=== PATIENT | female | born 1960 | race Caucasian/White ===

== ENCOUNTER 2017-02-02 12:17 | Day surgery (SDC) | payer BC ==
[2017-02-02 12:33] VITALS: BP 155/82; PULSE 76; RESP 20; TEMP 97.8
--- NOTE | 2017-02-02 15:39 | US ---
EXAMINATION TYPE: US FNA thyroid DATE OF EXAM: 02/02/2017 1:37 PM COMPARISON: NONE HISTORY: Thyroid nodule. Maximal barrier technique was utilized. After informed consent, skin overlying the lesion was locali zed with ultrasound and the overlying skin prepped and draped. Ultrasound was utilized using sterile technique. Lidocaine was used for local anesthesia. Five passes with a 25-gauge needle were made int o the nodule and aspirated specimen was submitted to cytology. Following the procedure hemostasis ac hieved. No immediate complication. The patient discharged in stable condition. IMPRESSION: STATUS POST ULTRASOUND GUIDED FINE NEEDLE ASPIRATION OF THYROID NODULE, PATHOLOGY IS PEND ING. THIS PROCEDURE WAS PERFORMED BY THE UNDERSIGNED.
== END 2017-02-02 13:40 | disposition home or self-care (01) ==
LOC: RADPROMAIN 12:17
PROVIDERS: ATTEND Family Medicine
DX: E04.1 Nontoxic single thyroid nodule (principal)
CPT/HCPCS: 10022; 76942; 88173; 88305

== ENCOUNTER → 2017-05-28 | Outpatient (CLI) | payer BC ==
--- NOTE | 2017-05-31 10:10 | MM ---
Reason for exam: screening (asymptomatic). Last mammogram was performed 1 year and 2 months ago. History: Patient is postmenopausal and is nulliparous. Family history of breast cancer in paternal cousin and breast cancer in paternal aunt at age 50. Taking estrogen for 10 years 5 months beginning at age 39. Physical Findings: A clinical breast exam by your physician is recommended on an annual basis and results should be correlated with mammographic findings. MG 3D Screening Mammo W/Cad Bilateral CC and MLO view(s) were taken. Prior study comparison: April 07, 2016, bilateral MG 3d screening mammo w/cad. February 28, 2015, bilateral MG screening mammo w CAD. The breast tissue is heterogeneously dense. This may lower the sensitivity of mammography. Benign calcifications. There is no discrete abnormality. No significant changes when compared with prior studies. ASSESSMENT: Benign, BI-RAD 2 RECOMMENDATION: Routine screening mammogram of both breasts in 1 year.
== END | disposition home or self-care (01) ==
LOC: RADMAMWWP 13:47
PROVIDERS: ATTEND Obstetrics & Gynecology
DX: Z12.31 Encounter for screening mammogram for malignant neoplasm of breast (principal)
CPT/HCPCS: 77063; G0202

== ENCOUNTER 2017-12-04 13:53 | Emergency (ER) | payer BC ==
[2017-12-04] MEDS ORDERED: ASPIRIN 81 MG PO STA (14:39)
[2017-12-04] MEDS ORDERED: SODIUM CHLORIDE 0.9% 1,000 ML IV STA (14:39)
[2017-12-04] MEDS ORDERED: LORazepam 1 MG TAB PO STA (14:42)
[2017-12-04 14:52] LABS: Basophils % (A) 0 %; Eosinophils # (A) 0.2 k/uL (0-0.7); Eosinophils % (A) 2 %; HCT 45.7 % (34.0-46.0); HGB 14.8 gm/dL (11.4-16.0); Lymphocytes # (A) 2.5 k/uL (1.0-4.8); Lymphocytes % (A) 26 %; MCH 27.7 pg (25.0-35.0); MCHC 32.3 g/dL (31.0-37.0); MCV 85.6 fL (80.0-100.0); Mean Platelet Volume 7.4; Monocytes # (A) 0.5 k/uL (0-1.0); Monocytes % (A) 5 %; Neutrophils # (A) 6.3 k/uL (1.3-7.7); Neutrophils % (A) 64 %; Platelet Count 272 k/uL (150-450); RBC 5.34 m/uL (3.80-5.40); RDW 13.9 % (11.5-15.5); WBC 9.9 k/uL (3.8-10.6)
[2017-12-04 15:10] LABS: Creatine Kinase 74 U/L (30-135)
[2017-12-04 15:11] LABS: ALT 35 U/L (9-52); AST 29 U/L (14-36); Albumin 4.4 g/dL (3.5-5.0); Alkaline Phosphatase 104 U/L (38-126); Anion Gap 13 mmol/L; Blood Urea Nitrogen 17 mg/dL (7-17); Carbon Dioxide 28 mmol/L (22-30); Chloride 99 mmol/L (98-107); Glucose 77 mg/dL (74-99); Potassium 3.5 mmol/L (3.5-5.1); Sodium 140 mmol/L (137-145); Total Bilirubin 0.4 mg/dL (0.2-1.3); Total Protein 7.6 g/dL (6.3-8.2)
[2017-12-04 15:21] LABS: INR 0.9 (<1.2); Partial Thromboplastin Time 25.3 sec (22.0-30.0); Prothrombin Time 9.4 sec (9.0-12.0)
[2017-12-04 15:23] LABS: Creatine Kinase MB 0.7 ng/mL (0.0-2.4); Troponin I <0.012 ng/mL (0.000-0.034)
--- NOTE | 2017-12-04 15:31 | XR ---
EXAMINATION TYPE: XR chest 2V DATE OF EXAM: 12/04/2017 COMPARISON: None HISTORY: 57-year-old female with dysrhythmia TECHNIQUE: Frontal and lateral views FINDINGS: The cardiomediastinal silhouette, aorta, and pulmonary vasculature are within normal limits. Mild int erstitial prominence is chronic appearance. Otherwise, lungs and pleural spaces are clear. IMPRESSION: No acute cardiopulmonary process.
--- NOTE | 2017-12-04 16:11 | ED ---
Arrhythmia/Palpitations HPI - General Chief Complaint: Arrhythmia/Palpitations Stated Complaint: Palpitations Time Seen by Provider: 12/04/17 14:23 Source: patient Mode of arrival: wheelchair Limitations: no limitations - History of Present Illness Initial Comments: 57 years old female presented with a palpitation she has this ongoing for 3 days this morning she got dizzy as well she said she is very stressed out from some family affairs she is looking after sister she has a psych disorders and parents are not doing very well area stressful situations recently she does drink coffee has no history of alcohol abuse no history of thyroid disease she is nonsmoker her parents is quite healthy heart bruce. She denies any headache no chest pain or shortness of breath no pleuritic chest pain no fever no chills she is not coughing up any phlegm no symptoms of TIA or CVA - Related Data Home Medications Medication Instructions Recorded Confirmed Estrogens, Conjugated Cream 1 dose VAGINAL Q72H 09/01/16 12/04/17 [Premarin Cream] Fluticasone Nasal [place] [Flonase 1 spray NASAL DAILY 09/01/16 12/04/17 Nasal [place]] Montelukast [Singulair] 10 mg PO HS 09/01/16 12/04/17 Multivitamins, Thera [Multivitamin] 1 tab PO DAILY 09/01/16 12/04/17 Testosteron Unknown Dose 1 dose IM Q60D 09/01/16 12/04/17 Triamterene/Hydrochlorothiazid 1 tab PO QAM 09/01/16 12/04/17 [Triamterene-Hctz 37.5-25 mg Cp] amLODIPine BESYLATE [Amlodipine 5 mg PO HS 09/01/16 12/04/17 Besylate] Cholecalciferol [Vitamin D3] 1,000 unit PO DAILY 12/04/17 12/04/17 Previous Rx's Medication Instructions Recorded LORazepam [Ativan] 0.5 mg PO BID #10 tab 12/04/17 Allergies Allergy/AdvReac Type Severity Reaction Status Date / Time Sulfa (Sulfonamide Allergy Rash/Hives Verified 12/04/17 15:45 Antibiotics) lisinopril AdvReac Cough Verified 12/04/17 15:45 Review of Systems ROS Statement: Those systems with pertinent positive or pertinent negative responses have been documented in the HPI. ROS Other: All systems not noted in ROS Statement are negative. Past Medical History Past Medical History: GERD/Reflux, Hypertension History of Any Multi-Drug Resistant Organisms: None Reported Past Surgical History: Appendectomy, Hysterectomy Additional Past Surgical History / Comment(s): RIGHT LEG VEIN STRIPPING ( SWELLING). OOPHERECTOMIES. SINUS. Past Anesthesia/Blood Transfusion Reactions: Motion Sickness Past Psychological History: No Psychological Hx Reported Smoking Status: Former smoker Past Alcohol Use History: Rare Past Drug Use History: None Reported General Exam - General Exam Comments Initial Comments: General: The patient is awake and alert, in no distress, and does not appear acutely ill. Bit anxious Skin: Skin is warm and dry and no rashes or lesions are noted. Eye: Pupils are equal, round and reactive to light, extra-ocular movements are intact; there is normal conjunctiva bilaterally. Ears, nose, mouth and throat: There are moist mucous membranes and no oral lesions. Neck: The neck is supple, there is no tenderness no obvious goiter noticed Cardiovascular: There is a regular rate and rhythm. No murmur, rub or gallop is appreciated. Respiratory: To auscultation bilateral, no wheezing no rhonchi no distress respiratory bruce noticed Gastrointestinal: Soft, non-distended, non-tender abdomen without masses or organomegaly noted. There is no rebound or guarding present. Bowel sounds are unremarkable. Back: There is no tenderness to palpation in the midline. There is no obvious deformity. Musculoskeletal: Normal ROM, no tenderness, There is no pedal edema. There is no calf tenderness or swelling. No cords were appreciated. Neurological: CN II-XII intact, Cranial nerves III through XII are intact. There are no obvious motor or sensory deficits. Coordination appears grossly intact. Speech is normal. Psychiatric: Cooperative, appropriate mood & affect, normal judgment. 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 ] Respiratory 18 Rate Blood Pressure 167/90 O2 Sat by Pulse 97 Oximetry Is reassessed at 1615, CBC, troponin, compressive metabolic panel, TSH and he told chemistries are within normal range so his EKG and the chest x-ray she is she has no chest pain and she is comfortable going home I recommended that she follow up with the cardiology as outpatient or return to the ER if symptoms get worse she agrees with that she be gone home on a small dose of Ativan and aspirin 81 mg EKG Findings - EKG Comments: EKG Findings:: Him EKG is normal sinus rhythm ventricular rate is 82 FL interval is 158 QRS duration is 78 QT/QTc is 376/439 review of this EKG revealed a T-wave inversion in lead 3 no STEMI noticed no ST segment depression noticed Medical Decision Making - Lab Data Result diagrams: 12/04/17 14:28 12/04/17 14:28 Lab Results 12/04/17 12/04/17 12/04/17 Range/Units 14:28 14:28 14:28 WBC 9.9 (3.8-10.6) k/uL RBC 5.34 (3.80-5.40) m/uL Hgb 14.8 (11.4-16.0) gm/dL Hct 45.7 (34.0-46.0) % MCV 85.6 (80.0-100.0) fL MCH 27.7 (25.0-35.0) pg MCHC 32.3 (31.0-37.0) g/dL RDW 13.9 (11.5-15.5) % Plt Count 272 (150-450) k/uL Neutrophils % 64 % Lymphocytes % 26 % Monocytes % 5 % Eosinophils % 2 % Basophils % 0 % Neutrophils # 6.3 (1.3-7.7) k/uL Lymphocytes # 2.5 (1.0-4.8) k/uL Monocytes # 0.5 (0-1.0) k/uL Eosinophils # 0.2 (0-0.7) k/uL Basophils # 0.0 (0-0.2) k/uL PT (9.0-12.0) sec INR (<1.2) APTT (22.0-30.0) sec Sodium 140 (137-145) mmol/L Potassium 3.5 (3.5-5.1) mmol/L Chloride 99 (98-107) mmol/L Carbon Dioxide 28 (22-30) mmol/L Anion Gap 13 mmol/L BUN 17 (7-17) mg/dL Creatinine 0.80 (0.52-1.04) mg/dL Est GFR (MDRD) Af Amer >60 (>60 ml/min/1.73 sqM) Est GFR (MDRD) Non-Af >60 (>60 ml/min/1.73 sqM) Glucose 77 (74-99) mg/dL Calcium 10.0 (8.4-10.2) mg/dL Magnesium 2.0 (1.6-2.3) mg/dL Total Bilirubin 0.4 (0.2-1.3) mg/dL AST 29 (14-36) U/L ALT 35 (9-52) U/L Alkaline Phosphatase 104 (38-126) U/L Total Creatine Kinase 74 (30-135) U/L CK-MB (CK-2) 0.7 (0.0-2.4) ng/mL CK-MB (CK-2) Rel Index 0.9 Troponin I <0.012 (0.000-0.034) ng/mL Total Protein 7.6 (6.3-8.2) g/dL Albumin 4.4 (3.5-5.0) g/dL TSH 2.140 (0.465-4.680) mIU/L 12/04/17 Range/Units 14:28 WBC (3.8-10.6) k/uL RBC (3.80-5.40) m/uL Hgb (11.4-16.0) gm/dL Hct (34.0-46.0) % MCV (80.0-100.0) fL MCH (25.0-35.0) pg MCHC (31.0-37.0) g/dL RDW (11.5-15.5) % Plt Count (150-450) k/uL Neutrophils % % Lymphocytes % % Monocytes % % Eosinophils % % Basophils % % Neutrophils # (1.3-7.7) k/uL Lymphocytes # (1.0-4.8) k/uL Monocytes # (0-1.0) k/uL Eosinophils # (0-0.7) k/uL Basophils # (0-0.2) k/uL PT 9.4 (9.0-12.0) sec INR 0.9 (<1.2) APTT 25.3 (22.0-30.0) sec Sodium (137-145) mmol/L Potassium (3.5-5.1) mmol/L Chloride (98-107) mmol/L Carbon Dioxide (22-30) mmol/L Anion Gap mmol/L BUN (7-17) mg/dL Creatinine (0.52-1.04) mg/dL Est GFR (MDRD) Af Amer (>60 ml/min/1.73 sqM) Est GFR (MDRD) Non-Af (>60 ml/min/1.73 sqM) Glucose (74-99) mg/dL Calcium (8.4-10.2) mg/dL Magnesium (1.6-2.3) mg/dL Total Bilirubin (0.2-1.3) mg/dL AST (14-36) U/L ALT (9-52) U/L Alkaline Phosphatase (38-126) U/L Total Creatine Kinase (30-135) U/L CK-MB (CK-2) (0.0-2.4) ng/mL CK-MB (CK-2) Rel Index Troponin I (0.000-0.034) ng/mL Total Protein (6.3-8.2) g/dL Albumin (3.5-5.0) g/dL TSH (0.465-4.680) mIU/L Disposition Clinical Impression: Palpitation Disposition: HOME SELF-CARE Condition: Good Instructions: Palpitations (ED) Prescriptions: LORazepam [Ativan] 0.5 mg PO BID #10 tab Referrals: Tirso You MD [Primary Care Provider] - 1-2 days Elena Fuentes MD [STAFF PHYSICIAN] - 1-2 days
[2017-12-04 16:25] VITALS: BP 128/62; PULSE 70; RESP 16; TEMP 98.1
== END 2017-12-04 16:25 | disposition home or self-care (01) ==
LOC: EC 13:53
DX: R00.2 Palpitations (principal); R42 Dizziness and giddiness; I10 Essential (primary) hypertension; Z79.51 Long term (current) use of inhaled steroids; Z87.891 Personal history of nicotine dependence; Z88.2 Allergy status to sulfonamides; Z88.8 Allergy status to other drugs, medicaments and biological substances; Z79.899 Other long term (current) drug therapy
CPT/HCPCS: 36415; 71046; 80053; 82550; 82553; 83735; 84443; 84484; 85025; 85610; 85730; 93005; 96360; 99285

== ENCOUNTER → 2018-07-13 | Outpatient (CLI) | payer BC ==
--- NOTE | 2018-07-15 10:02 | MM ---
Reason for exam: screening (asymptomatic). Last mammogram was performed 1 year and 1 month ago. History: Patient is postmenopausal and is nulliparous. Family history of breast cancer in paternal cousin and breast cancer in paternal aunt at age 50. Taking estrogen for 10 years 5 months beginning at age 39. Physical Findings: A clinical breast exam by your physician is recommended on an annual basis and results should be correlated with mammographic findings. MG 3D Screening Mammo W/Cad Bilateral CC and MLO view(s) were taken. Prior study comparison: May 28, 2017, bilateral MG 3d screening mammo w/cad. April 07, 2016, bilateral MG 3d screening mammo w/cad. There are scattered fibroglandular densities. Focal asymmetry bilaterally are unchanged. No significant changes when compared with prior studies. ASSESSMENT: Negative, BI-RAD 1 RECOMMENDATION: Routine screening mammogram of both breasts in 1 year.
== END | disposition home or self-care (01) ==
LOC: RADMAMWWP 14:46
PROVIDERS: ATTEND Obstetrics & Gynecology
DX: Z12.31 Encounter for screening mammogram for malignant neoplasm of breast (principal)
CPT/HCPCS: 77063; 77067

== ENCOUNTER → 2018-12-30 | Outpatient (CLI) | payer BC ==
--- NOTE | 2018-12-30 14:22 | US ---
EXAMINATION TYPE: US thyroid st tissue head/neck DATE OF EXAM: 12/30/2018 COMPARISON: US dated 12/11/2015 CLINICAL HISTORY: E04.2 Nontoxic multinodular goiter; occasional difficulty swallowing GLAND SIZE: Right Lobe: 4.5 x 1.5 x 1.1 cm Overall Parenchyma: heterogenous Left Lobe: 4.4 x 1.7 x 1.4 cm Overall Parenchyma: heterogeneous Isthmus Thickness: 0.2 cm NODULES RIGHT: # of nodules measured on right: 1 1. 0.3 X 0.3 x 0.2 cm hypoechoic cystic nodule at the mid pole with well-defined margins. This nod ule is wider than tall and shows no intranodular vascularity. Prior size: no previous LEFT: # of nodules measured on left: 1 1. 1.2 X 0.9 x 0.7 cm hypoechoic mixed nodule at the lower pole with well-defined margins. This no dule is wider than tall and shows no intranodular vascularity. Prior size: 1.0 x 0.7 x 1.0 cm ISTHMUS: # of nodules measured in the isthmus: 0 Bilateral neck scanned: no evidence of lymphadenopathy. IMPRESSION: Exam is essentially stable.
== END | disposition home or self-care (01) ==
LOC: RADUSWWP 12:09
PROVIDERS: ATTEND Internal Medicine Endocrinology, Diabetes & Metabolism
DX: E04.2 Nontoxic multinodular goiter (principal)
CPT/HCPCS: 76536

== ENCOUNTER → 2019-09-05 | Outpatient (CLI) | payer BC ==
--- NOTE | 2019-09-05 09:50 | MM ---
Reason for exam: screening (asymptomatic). Last mammogram was performed 1 year and 2 months ago. History: Patient is postmenopausal and is nulliparous. Family history of breast cancer in paternal cousin and breast cancer in paternal aunt at age 50. Taking estrogen for 10 years 5 months beginning at age 39. Physical Findings: A clinical breast exam by your physician is recommended on an annual basis and results should be correlated with mammographic findings. MG 3D Screening Mammo W/Cad Bilateral CC and MLO view(s) were taken. Prior study comparison: July 13, 2018, bilateral MG 3d screening mammo w/cad. May 28, 2017, bilateral MG 3d screening mammo w/cad. The breast tissue is heterogeneously dense. This may lower the sensitivity of mammography. Benign appearing bilateral calcifications. No suspicious abnormality. No significant changes when compared with prior studies. ASSESSMENT: Benign, BI-RAD 2 RECOMMENDATION: Routine screening mammogram of both breasts in 1 year.
== END | disposition home or self-care (01) ==
LOC: RADMAMWWP 07:00
PROVIDERS: ATTEND Family Medicine
DX: Z12.31 Encounter for screening mammogram for malignant neoplasm of breast (principal)
CPT/HCPCS: 77063; 77067

== ENCOUNTER → 2019-11-10 | Outpatient (CLI) | payer BC ==
--- NOTE | 2019-11-10 14:29 | US ---
EXAMINATION TYPE: US thyroid st tissue head/neck DATE OF EXAM: 11/10/2019 COMPARISON: Ultrasound December 30, 2018 CLINICAL HISTORY: E04.2 Thyroid nodule. Follow up thyroid nodule GLAND SIZE: Right Lobe: 5.0 x 1.8 x 1.3 cm Overall Parenchyma: homogenous Left Lobe: 4.5 x 1.4 x 1.4 cm Overall Parenchyma: homogeneous Isthmus Thickness: 0.2 cm NODULES RIGHT: # of nodules measured on right: 1 1. 0.3 X 0.3 x 0.2 cm cystic nodule at the lower pole with well-defined margins. This nodule is wi ad than tall and shows no intranodular vascularity. Prior size: 0.3 x 0.3 x 0.2 cm LEFT: # of nodules measured on left: 1 1. 1.0 X 1.1 x 1.1 cm hypoechoic nodule at the lower pole with well-defined margins. This nodule i s wide as tall and shows intranodular vascularity. Prior size: 1.2 x 0.9 x 0.7 cm ISTHMUS: # of nodules measured in the isthmus: 0 Bilateral neck scanned, no evidence of lymphadenopathy. Homogeneous normal-sized thyroid with stable single nodules measured bilaterally, larger slightly hyp oechoic solid nodule on the left thyroid. IMPRESSION: As above. No new greater than 1 cm nodules.
== END | disposition home or self-care (01) ==
LOC: RADUSWWP 13:35
PROVIDERS: ATTEND Internal Medicine Endocrinology, Diabetes & Metabolism
DX: E04.2 Nontoxic multinodular goiter (principal)
CPT/HCPCS: 76536

== ENCOUNTER → 2020-02-29 | Outpatient (CLI) | payer OTHER ==
[2020-02-29 12:51] LABS: HCT 47.2 % (34.0-46.0); HGB 15.8 gm/dL (11.4-16.0); MCHC 33.5 g/dL (31.0-37.0); MCV 83.7 fL (80.0-100.0); Mean Platelet Volume 8.3; Platelet Count 325 k/uL (150-450); RBC 5.63 m/uL (3.80-5.40); RDW 15.8 % (11.5-15.5)
[2020-02-29 20:04] LABS: Albumin 4.2 g/dL (3.80-4.90); Albumin/Globulin Ratio 1.62 (1.60-3.17); Calcium 9.4 mg/dL (8.7-10.3); Globulin 2.6 g/dL (1.6-3.3); Potassium 3.7 mmol/L (3.5-5.5); Total Bilirubin 0.5 mg/dL (0.3-1.2); Total Protein 6.8 g/dL (6.2-8.2)
[2020-02-29 20:11] LABS: T4, Free (Free Thyroxine) 1.1 ng/dL (0.80-1.80)
== END | disposition home or self-care (01) ==
LOC: LABWHC1 11:48
PROVIDERS: ATTEND Internal Medicine Endocrinology, Diabetes & Metabolism
DX: E04.2 Nontoxic multinodular goiter (principal); E28.39 Other primary ovarian failure
CPT/HCPCS: 36415; 80053; 84403; 84439; 84443; 85027

== ENCOUNTER → 2020-06-25 | Outpatient (CLI) | payer MEDICAID, OTHER ==
[2020-06-25 08:22] LABS: HCT 45.1 % (34.0-46.0); HGB 14.8 gm/dL (11.4-16.0); MCH 27.5 pg (25.0-35.0); MCHC 32.7 g/dL (31.0-37.0); MCV 83.9 fL (80.0-100.0); Platelet Count 312 k/uL (150-450); RBC 5.38 m/uL (3.80-5.40); RDW 15.1 % (11.5-15.5); WBC 9.7 k/uL (3.8-10.6)
[2020-06-25 16:36] LABS: African American GFR (CKD) 62.8 (60.0-200.0); Albumin 4.3 g/dL (3.80-4.90); Albumin/Globulin Ratio 1.65 (1.60-3.17); Anion Gap 8.7 mmol/L (4.00-12.00); BUN/Creat Ratio 16.36 Ratio (12.00-20.00); Calcium 9.4 mg/dL (8.7-10.3); Carbon Dioxide 31.3 mmol/L (21.6-31.8); Chol/HDL Ratio 5.24; Globulin 2.6 g/dL (1.6-3.3); Non-African American GFR(CKD) 54.1 (60.0-200.0); Potassium 3.8 mmol/L (3.5-5.5); Total Bilirubin 0.7 mg/dL (0.3-1.2); Total Protein 6.9 g/dL (6.2-8.2)
== END | disposition home or self-care (01) ==
LOC: LABWHC1 07:34
PROVIDERS: ATTEND Family Medicine
DX: Z00.00 Encounter for general adult medical examination without abnormal findings (principal)
CPT/HCPCS: 36415; 80053; 80061; 85027

== ENCOUNTER → 2020-08-07 | Outpatient (CLI) | payer MEDICAID ==
[2020-08-07 15:13] VITALS: BP 166/87; PULSE 98; RESP 20; TEMP 98.6; BMI 45.9
--- NOTE | 2020-08-07 15:43 | P.HPBAR ---
Bariatric H&P - History & Physicial H&P Date: 08/07/20 History & Physicial: Visit/CC: initial visit Patient initial contact: Initial weight: Initial weight in pounds: Height: 5 ft 4.5 in Initial BMI: Last weight: Current weight: 123.241 kg Current weight in pounds: 271.70 Current BMI: 45.9 [place] body weight (based on NIH guidelines): 55.565 kg Excess body weight loss: The patient is a 60 year-old F who presents for Bariatric Assessment. She comes in for the first time for morbid obesity. She is unsure of her procedure. She does not the gastric bypass. She has friends who had weight loss surgery. She reports brother and sisters with troubles with weight. For her whole life she had troubles of her whole life. She reports knee pain. 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 She reports feeling hungry all the time. She has gained from her depression. Last colonoscopy was 5 years ago and had polyps. She denies moderate GERD. No stomach or esophageal cancer. 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 1+ edema of legs Past Medical History Past Medical History: GERD/Reflux, Hypertension Additional Past Medical History / Comment(s): borderline DM. 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 OOPHERECTOMIES. SINUS. Past Anesthesia/Blood Transfusion Reactions: Motion Sickness Past Psychological History: No Psychological Hx Reported Smoking Status: Former smoker Past Alcohol Use History: Rare Additional Past Alcohol Use History / Comment(s): QUIT 25 YRS AGO (1988), FOR ABOUT 10 YRS, 1PPD Past Drug Use History: None Reported Surgical - Exam Vital Signs Temp Pulse Resp BP 98.6 F 98 20 166/87 08/07/20 14:56 08/07/20 14:56 08/07/20 14:56 08/07/20 14:56 Bariatric Checklist Checklist: Plan: Checklist: EGD: 1. Hiatal hernia: 2. H. Pylori: HgbA1c: Vitamin D: Smoking: Former smoker Primary care physician referral: Dr You Psychiatry clearance: Cardiology clearance: Sleep study: Diet journal: VTE risk score: VTE risk level: Rehab needs at discharge:
[2020-08-07 16:47] LABS: HCT 46.2 % (34.0-46.0); HGB 15.2 gm/dL (11.4-16.0); MCH 28.5 pg (25.0-35.0); MCHC 32.9 g/dL (31.0-37.0); MCV 86.7 fL (80.0-100.0); Mean Platelet Volume 7.8; Platelet Count 292 k/uL (150-450); RBC 5.33 m/uL (3.80-5.40); RDW 15.4 % (11.5-15.5); WBC 10.3 k/uL (3.8-10.6)
[2020-08-07 18:54] LABS: INR 0.9 (<1.2); Partial Thromboplastin Time 25.9 sec (22.0-30.0); Prothrombin Time 9.4 sec (9.0-12.0)
[2020-08-08 01:36] LABS: Hemoglobin A1C 5.9 % (4.0-6.0)
[2020-08-08 02:14] LABS: Ferritin 161.7 ng/mL (10.0-291.0)
[2020-08-08 03:31] LABS: % Iron Saturation 11.75 (12.00-45.00); African American GFR (CKD) 92.2 (60.0-200.0); Albumin 4.5 g/dL (3.80-4.90); Albumin/Globulin Ratio 1.8 (1.60-3.17); Anion Gap 9.3 mmol/L (4.00-12.00); BUN/Creat Ratio 21.25 Ratio (12.00-20.00); Calcium 9.6 mg/dL (8.7-10.3); Carbon Dioxide 29.7 mmol/L (21.6-31.8); Chol/HDL Ratio 5.06; Folate, Serum 21.5 ng/mL; Globulin 2.5 g/dL (1.6-3.3); LDL Cholesterol,Calculated 105.8 mg/dL (0.0-131.0); Magnesium 1.8 mg/dL (1.5-2.4); Non-African American GFR(CKD) 79.6 (60.0-200.0); Phosphorus 3.6 mg/dL (2.4-5.1); Potassium 3.6 mmol/L (3.5-5.5); Total Bilirubin 0.4 mg/dL (0.3-1.2); VLDL Calculation 40.2 mg/dL (5.00-40.00)
[2020-08-08 12:10] LABS: Zinc, Serum 52 ug/dL (60-130)
[2020-08-09 13:20] LABS: Vit B1(Thiamine) 89 ug/L (38-122)
[2020-08-09 14:27] LABS: Vitamin A 39 ug/dL (38-106)
[2020-08-11 01:21] LABS: Selenium 140 mcg/L (63-160)
== END | disposition home or self-care (01) ==
LOC: BARWHC3 14:35
PROVIDERS: ATTEND Surgery Plastic and Reconstructive Surgery
DX: E66.01 Morbid (severe) obesity due to excess calories (principal); Z68.42 Body mass index [BMI] 45.0-49.9, adult; D50.8 Other iron deficiency anemias; E55.9 Vitamin D deficiency, unspecified; E44.0 Moderate protein-calorie malnutrition; K74.1 Hepatic sclerosis; N19 Unspecified kidney failure; K50.90 Crohn's disease, unspecified, without complications
CPT/HCPCS: 36415; 80053; 80061; 82306; 82525; 82607; 82728; 82746; 83036; 83540; 83550; 83735; 83970; 84100; 84134; 84255; 84425; 84443; 84590; 84630; 85027; 85610; 85730; 93005; 99211

== ENCOUNTER → 2020-10-01 | Outpatient (CLI) | payer MEDICAID ==
[2020-10-01 16:56] LABS: HCT 43.1 % (34.0-46.0); HGB 14.5 gm/dL (11.4-16.0); MCH 28.4 pg (25.0-35.0); MCHC 33.6 g/dL (31.0-37.0); MCV 84.4 fL (80.0-100.0); Mean Platelet Volume 7.5; Platelet Count 282 k/uL (150-450); RBC 5.11 m/uL (3.80-5.40); RDW 14.7 % (11.5-15.5); WBC 10.5 k/uL (3.8-10.6)
[2020-10-02 02:28] LABS: T4, Free (Free Thyroxine) 0.9 ng/dL (0.80-1.80)
== END | disposition home or self-care (01) ==
LOC: LABWHC1 16:14
PROVIDERS: ATTEND Internal Medicine Endocrinology, Diabetes & Metabolism
DX: E04.2 Nontoxic multinodular goiter (principal); E28.39 Other primary ovarian failure
CPT/HCPCS: 36415; 84403; 84439; 84443; 85027

== ENCOUNTER 2020-10-02 10:03 | Day surgery (SDC) | payer MEDICAID ==
[2020-09-30 09:44] VITALS: BMI 44.2
--- NOTE | 2020-10-02 09:31 | P.GSHP ---
History of Present Illness H&P Date: 10/02/20 CHIEF COMPLAINT: GERD HISTORY OF PRESENT ILLNESS: The patient is a 60-year-old female who presents reports gastroesophageal reflux disease. Upper endoscopy was offered for further evaluation and management. PAST MEDICAL HISTORY: Please see list. PAST SURGICAL HISTORY: Please see list. MEDICATIONS: Please see list. ALLERGIES: Please see list. SOCIAL HISTORY: No illicit drug use FAMILY HISTORY: No reports of Crohn disease or ulcerative colitis. REVIEW OF ORGAN SYSTEMS: CONSTITUTIONAL: No reports of fevers or chills. GI: Denies any blood in stools or constipation. PHYSICAL EXAM: VITAL SIGNS: Stable GENERAL: Well-developed and pleasant in no acute distress. HEENT: No scleral icterus. Extraocular movements grossly intact. Moist buccal mucosa. NECK: Supple without lymphadenopathy. CHEST: Unlabored respirations. Equal bilateral excursions. CARDIOVASCULAR: Regular rate and rhythm. Distal 2+ pulses. ABDOMEN: Soft, nondistended. MUSCULOSKELETAL: No clubbing, cyanosis, or edema. ASSESSMENT: 1. Gastroesophageal reflux disease PLAN: 1. 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 OOPHERECTOMIES. SINUS SURGERY , Past Anesthesia/Blood Transfusion Reactions: Motion Sickness Smoking Status: Former smoker - Past Family History Brother(s) Family Medical History: Cancer Medications and Allergies Home Medications Medication Instructions Recorded Confirmed Type Estrogens, Conjugated Cream 1 dose VAGINAL Q72H 09/01/16 09/30/20 History [Premarin Cream] Montelukast [Singulair] 10 mg PO HS 09/01/16 09/30/20 History Multivitamins, Thera [Multivitamin] 1 tab PO DAILY 09/01/16 09/30/20 History Testosteron Unknown Dose 1 dose IM Q60D 09/01/16 09/30/20 History Triamterene/Hydrochlorothiazid 1 tab PO QAM 09/01/16 09/30/20 History [Triamterene-Hctz 37.5-25 mg Cp] amLODIPine BESYLATE [Amlodipine 5 mg PO HS 09/01/16 09/30/20 History Besylate] Azelastine HCl 1 applic INTRANASAL BID PRN 08/08/20 09/30/20 History Cholecalciferol [Vitamin D3 (25 5,000 unit PO DAILY 09/30/20 09/30/20 History Mcg = 1000 Iu)] Ferrous Sulfate [Feosol] 325 mg PO DAILY 09/30/20 09/30/20 History Vilazodone HCl [Viibryd] 40 mg PO DAILY 09/30/20 09/30/20 History Allergies Allergy/AdvReac Type Severity Reaction Status Date / Time Sulfa (Sulfonamide Allergy Rash/Hives Verified 09/30/20 09:10 Antibiotics) lisinopril AdvReac Cough Verified 09/30/20 09:10
[~2020-10-02 10:03] MED LIST: LACTATED RINGERS 1,000 ML IV SCH
[2020-10-02 10:55] VITALS: RESP 16; TEMP 98.2
[2020-10-02] MEDS ORDERED: PROPOFOL 10 MG/ML 20 ML VIAL IV ONE (11:21)
[2020-10-02] MEDS ORDERED: LIDOCAINE 1% INJ 10MG/ML (20 ML MDV) ONE (11:21)
--- NOTE | 2020-10-02 12:04 | P.PCN ---
Date of Procedure: 10/02/20 Description of Procedure: PREOPERATIVE DIAGNOSIS: Gastroesophageal reflux disease. Morbid obesity. POSTOPERATIVE DIAGNOSIS: Morbid obesity. Gastritis. Gastroesophageal reflux disease. Gastric polyp Erosive esophagitis OPERATION: Esophagogastroduodenoscopy with biopsies along antrum gastroesophageal junction SURGEON: Jailene Morales MD ANESTHESIA: MAC. INDICATIONS: The patient is a 60-year-old female who presents with a history of reflux disease. Benefits and risks of the procedure were described. Informed consent was obtained. DESCRIPTION: The patient was brought into the endoscopy suite and laid in the left lateral decubitus position. An Olympus gastroscope was passed along the posterior oropharynx down to the distal esophagus where the squamocolumnar junction was encountered at 37 cm from the incisors. The stomach was entered and no bile reflux was found. Additional findings are listed below. Biopsies with cold forceps were obtained of the antrum. The first through third portion of the duodenum was examined and unremarkable. Retroflexion of the scope confirmed Hill grade 3 lower esophageal valve. The squamocolumnar junction demonstrated LA grade C erosive esophagitis. The stomach was desufflated. The patient tolerated the procedure well. FINDINGS: Squamocolumnar junction 37 cm from the incisors. Diaphragmatic hiatus at 37 cm. Hill grade 3 lower esophageal valve. LA grade C erosive esophagitis. Diffuse gastric polyps No active duodenitis. Chronic gastritis RECOMMENDATIONS: Upper endoscopy as needed. Plan - Discharge Summary Discharge Rx Participant: No New Discharge Prescriptions: New Omeprazole [PriLOSEC] 40 mg PO DAILY #14 cap Continue amLODIPine BESYLATE [Amlodipine Besylate] 5 mg PO HS Estrogens, Conjugated Cream [Premarin Cream] 1 dose VAGINAL Q72H Montelukast [Singulair] 10 mg PO HS Multivitamins, Thera [Multivitamin (formulary)] 1 tab PO DAILY Testosteron Unknown Dose 1 dose IM Q60D Triamterene/Hydrochlorothiazid [Triamterene-Hctz 37.5-25 mg Cp] 1 tab PO QAM Azelastine HCl 1 applic INTRANASAL BID PRN PRN Reason: Allergy Symptoms Vilazodone HCl [Viibryd] 40 mg PO DAILY Ferrous Sulfate [Iron (65 MG Elemental)] 325 mg PO DAILY Cholecalciferol [Vitamin D3 (25 Mcg = 1000 Iu)] 5,000 unit PO DAILY Discharge Medication List Estrogens, Conjugated Cream [Premarin Cream] 1 dose VAGINAL Q72H 09/01/16 [History] Montelukast [Singulair] 10 mg PO HS 09/01/16 [History] Multivitamins, Thera [Multivitamin (formulary)] 1 tab PO DAILY 09/01/16 [History] Testosteron Unknown Dose 1 dose IM Q60D 09/01/16 [History] Triamterene/Hydrochlorothiazid [Triamterene-Hctz 37.5-25 mg Cp] 1 tab PO QAM 09/01/16 [History] amLODIPine BESYLATE [Amlodipine Besylate] 5 mg PO HS 09/01/16 [History] Azelastine HCl 1 applic INTRANASAL BID PRN 08/08/20 [History] Cholecalciferol [Vitamin D3 (25 Mcg = 1000 Iu)] 5,000 unit PO DAILY 09/30/20 [History] Ferrous Sulfate [Iron (65 MG Elemental)] 325 mg PO DAILY 09/30/20 [History] Vilazodone HCl [Viibryd] 40 mg PO DAILY 09/30/20 [History] Omeprazole [PriLOSEC] 40 mg PO DAILY #14 cap 10/02/20 [Rx] Follow up App[facility]ment(s[facility]Ref[facility] [place] [place] [facility] - 10/09/20 3:00 pm Patient Instructions/Handouts: *Surgery [facility] - (Anesthesia) Endoscopy Discharge Instructions, Gastritis (DC), Gastroesophageal Reflux Disease (DC), Gastric Polyps (DC) Activity/Diet/Wound Care/Special Instructions: Start on omeprazole for reflux disease Discharge Disposition: HOME SELF-CARE
[2020-10-02 12:05] VITALS: BP 145/81; PULSE 68
== END 2020-10-02 12:20 | disposition home or self-care (01) ==
LOC: ORWHC2ENDO 10:03
PROVIDERS: ATTEND Surgery Plastic and Reconstructive Surgery
DX: K21.00 Gastro-esophageal reflux disease with esophagitis, without bleeding (principal); K31.7 Polyp of stomach and duodenum; K29.70 Gastritis, unspecified, without bleeding; K22.10 Ulcer of esophagus without bleeding; I10 Essential (primary) hypertension; E66.01 Morbid (severe) obesity due to excess calories; Z79.899 Other long term (current) drug therapy; Z88.2 Allergy status to sulfonamides; Z88.8 Allergy status to other drugs, medicaments and biological substances; Z90.710 Acquired absence of both cervix and uterus; Z90.49 Acquired absence of other specified parts of digestive tract; Z87.891 Personal history of nicotine dependence; Z98.890 Other specified postprocedural states; Z80.9 Family history of malignant neoplasm, unspecified; Z68.41 Body mass index [BMI] 40.0-44.9, adult
CPT/HCPCS: 88305; 43239; J2001; J2704

== ENCOUNTER → 2020-10-09 | Outpatient (CLI) | payer MEDICAID ==
[2020-10-09 12:06] VITALS: BP 183/81; PULSE 86; RESP 18; TEMP 98.1; BMI 44.7
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
== END | disposition home or self-care (01) ==
LOC: BARWHC3 11:49
PROVIDERS: ATTEND Surgery Plastic and Reconstructive Surgery
DX: E66.01 Morbid (severe) obesity due to excess calories (principal); I11.0 Hypertensive heart disease with heart failure; J45.909 Unspecified asthma, uncomplicated; K21.9 Gastro-esophageal reflux disease without esophagitis; F41.9 Anxiety disorder, unspecified; T75.3XXA Motion sickness, initial encounter; K29.50 Unspecified chronic gastritis without bleeding; Z68.42 Body mass index [BMI] 45.0-49.9, adult; Z88.2 Allergy status to sulfonamides; Z88.8 Allergy status to other drugs, medicaments and biological substances; Z79.891 Long term (current) use of opiate analgesic; Z79.899 Other long term (current) drug therapy; Z90.710 Acquired absence of both cervix and uterus; Z90.49 Acquired absence of other specified parts of digestive tract
CPT/HCPCS: 99211

== ENCOUNTER → 2020-10-21 | Outpatient (CLI) | payer MEDICAID ==
--- NOTE | 2020-10-24 10:18 | MM ---
Reason for exam: screening (asymptomatic). Last mammogram was performed 1 year and 1 month ago. History: Patient is postmenopausal and is nulliparous. Family history of breast cancer in paternal cousin and breast cancer in paternal aunt at age 50. Taking estrogen for 10 years 5 months beginning at age 39. Physical Findings: A clinical breast exam by your physician is recommended on an annual basis and results should be correlated with mammographic findings. MG 3D Screening Mammo W/Cad Bilateral CC and MLO view(s) were taken. Prior study comparison: September 05, 2019, bilateral MG 3d screening mammo w/cad. July 13, 2018, bilateral MG 3d screening mammo w/cad. There are scattered fibroglandular densities. No significant changes when compared with prior studies. ASSESSMENT: Benign, BI-RAD 2 RECOMMENDATION: Routine screening mammogram of both breasts in 1 year.
== END | disposition home or self-care (01) ==
LOC: RADMAMWWP 14:44
PROVIDERS: ATTEND Family Medicine
DX: Z12.31 Encounter for screening mammogram for malignant neoplasm of breast (principal)
CPT/HCPCS: 77063; 77067

== ENCOUNTER → 2021-01-13 | Outpatient (CLI) | payer MEDICAID ==
[2021-01-13 15:22] VITALS: BMI 43.4
== END ==
LOC: BARWHC3 08:38
PROVIDERS: ATTEND Surgery Plastic and Reconstructive Surgery
DX: E66.01 Morbid (severe) obesity due to excess calories (principal); Z71.3 Dietary counseling and surveillance; Z68.41 Body mass index [BMI] 40.0-44.9, adult; Z87.891 Personal history of nicotine dependence
CPT/HCPCS: 97804

== ENCOUNTER → 2021-01-17 | Outpatient (CLI) | payer MEDICAID ==
--- NOTE | 2021-01-17 15:24 | US ---
EXAMINATION TYPE: US thyroid st tissue head/neck DATE OF EXAM: 01/17/2021 COMPARISON: 11/10/2019 CLINICAL HISTORY: 60-year-old female E04.1 Thyroid nodule. Follow-up thyroid nodule TECHNIQUE: Multiple sonographic images of the thyroid gland are obtained. FINDINGS: GLAND SIZE: Right Lobe: 5.7 x 1.3 x 2.0 cm Overall Parenchyma: homogenous Left Lobe: 5.4 x 1.6 x 1.8 cm Overall Parenchyma: homogeneous Isthmus Thickness: 0.3 cm NODULES RIGHT: # of nodules measured on right: 1 1. 0.3 X 0.2 x 0.4 cm, benign cyst at the lower pole. Prior size: 0.3 x 0.3 x 0.2 cm LEFT: # of nodules measured on left: 1 1. TR 4 0.9 X 0.8 x 1.0 cm, lower , solid, isoechoic nodule, which is wider than tall, with ill-def ined margins, with echogenic foci. Prior size: 1.0 x 1.1 x 1.1 cm ISTHMUS: # of nodules measured in the isthmus: 0 Bilateral neck scanned, no evidence of lymphadenopathy. IMPRESSION: 1. Mild thyromegaly. 2. A stable 1.0 cm TR 4 nodule on the left (solid, isoechoic, with punctate calcifications). This can continue to be followed and biopsied if it reaches 1.5 cm.
== END | disposition home or self-care (01) ==
LOC: RADUSWWP 14:11
PROVIDERS: ATTEND Internal Medicine Endocrinology, Diabetes & Metabolism
DX: E04.1 Nontoxic single thyroid nodule (principal)
CPT/HCPCS: 76536

== ENCOUNTER → 2021-04-02 | Outpatient (CLI) | payer MEDICAID ==
[2021-04-02 17:15] LABS: Basophils # (A) 0.1 k/uL (0-0.2); Basophils % (A) 1 %; Eosinophils # (A) 0.2 k/uL (0-0.7); Eosinophils % (A) 2 %; HCT 47.6 % (34.0-46.0); HGB 15.4 gm/dL (11.4-16.0); Lymphocytes # (A) 2.2 k/uL (1.0-4.8); Lymphocytes % (A) 23 %; MCH 27.2 pg (25.0-35.0); MCHC 32.4 g/dL (31.0-37.0); MCV 83.9 fL (80.0-100.0); Mean Platelet Volume 7.7; Monocytes # (A) 0.4 k/uL (0-1.0); Monocytes % (A) 5 %; Neutrophils # (A) 6.3 k/uL (1.3-7.7); Neutrophils % (A) 67 %; Platelet Count 302 k/uL (150-450); RBC 5.68 m/uL (3.80-5.40); RDW 15.1 % (11.5-15.5); WBC 9.3 k/uL (3.8-10.6)
[2021-04-02 17:33] LABS: Albumin 4.7 g/dL (3.5-5.0); Calcium 9.7 mg/dL (8.4-10.2); Potassium 3.5 mmol/L (3.5-5.1); Total Bilirubin 0.6 mg/dL (0.2-1.3); Total Protein 7.8 g/dL (6.3-8.2)
== END | disposition home or self-care (01) ==
LOC: LABPAT 16:35
PROVIDERS: ATTEND Surgery Plastic and Reconstructive Surgery
DX: Z01.810 Encounter for preprocedural cardiovascular examination (principal); Z01.812 Encounter for preprocedural laboratory examination
CPT/HCPCS: 36415; 80053; 85025; 86850; 86900; 86901

== ENCOUNTER → 2021-04-02 | Outpatient (CLI) | payer MEDICAID ==
[2021-04-02 16:04] VITALS: BP 148/91; PULSE 92; RESP 18; TEMP 97.2; BMI 42.7
--- NOTE | 2021-04-02 16:15 | P.PN ---
Subjective Progress Note Date: 04/02/21 DATE OF SERVICE: 04/02/2021 CHIEF COMPLAINT: Morbid obesity HISTORY OF PRESENT ILLNESS: Joann Forbes is a 60-year-old female who comes with lifelong morbid obesity. She completed medical supervised weight loss. She has seen a loss prevention coordinator for her abnormal EKG. She had a stress test. She is looking into sleeve gastrectomy. As a result of her morbid obesity, she developed hypertensive heart disease as a result. She presents in consultation for her morbid obesity. At height of 5 feet 4.5 inches, her ideal body weight is 144 pounds. She comes in 264 pounds from 271 pounds, 2 months ago. She lost 7 pounds in 2 months. Her body mass index is 45.9 down to 44.8. She is 120 pounds overweight. PAST MEDICAL HISTORY: 1. Morbid obesity due to excess calories 2. Body mass index of 45.9, initial 3. Hypertensive heart disease. 4. Asthma 5. Gastroesophageal reflux disease 6. Generalized anxiety disorder 7. Motion sickness PAST SURGICAL HISTORY: 1. Appendectomy 2. Hysterectomy HOME MEDICATIONS: Home Medications Medication Instructions Recorded Confirmed Estrogens, Conjugated Cream 1 dose VAGINAL Q72H 09/01/16 05/07/21 [Premarin Vaginal Cream] Montelukast [Singulair] 10 mg PO HS 09/01/16 05/07/21 Triamterene/Hydrochlorothiazid 1 tab PO QAM 09/01/16 05/07/21 [Triamterene-Hctz 37.5-25 mg Cp] amLODIPine BESYLATE [Amlodipine 5 mg PO HS 09/01/16 05/07/21 Besylate] Azelastine HCl 1 applic INTRANASAL BID PRN 08/08/20 05/07/21 Vilazodone HCl [Viibryd] 40 mg PO DAILY 09/30/20 05/07/21 Previous Rx's Medication Instructions Recorded Omeprazole [PriLOSEC] 40 mg PO DAILY #14 cap 10/02/20 Acetaminophen Oral Susp [Tylenol] 1,000 mg PO Q4-6H PRN #400 ml 04/16/21 Ondansetron Odt [Zofran Odt] 4 mg PO Q8HR PRN #9 tab 04/16/21 Simethicone 40 mg/0.6 ml Drops 40 mg PO PCHS PRN #30 ml 04/16/21 [Mylicon Drops] bisacodyL [Dulcolax] 5 mg PO DAILY PRN #10 tablet. 04/16/21 ALLERGIES: Allergies Allergy/AdvReac Type Severity Reaction Status Date / Time Sulfa (Sulfonamide Allergy Rash/Hives Verified 05/07/21 16:04 Antibiotics) lisinopril AdvReac Cough Verified 05/07/21 16:04 SOCIAL HISTORY: Past tobacco use. FAMILY HISTORY: No family history of ulcerative colitis disease or Crohn's disease. Family history of morbid obesity. No lupus in the family. No reports of stomach or esophageal cancer. REVIEW OF ORGAN SYSTEMS: CONSTITUTIONAL: At height of 5 feet 4.5 inches, her ideal body weight is 144 pounds. She comes in 271 pounds. Her body mass index is 45.9. She is 127 pounds overweight. HEENT: Denies any active troubles with vision or hearing. ENDOCRINE: No diabetes. No hypothyroidism. CARDIOVASCULAR: No past reports of palpitations or heart attacks or chest pain. RESPIRATORY: No recent pneumonia. Denies asthma. GASTROINTESTINAL: Denies any bright red blood per rectum. No diarrhea. No co nstipation. Has gastroesohageal reflux disease MUSCULOSKELETAL: Has lower back pain and joint pain. Has osteoarthritis of the knees. NEURO: No headaches. No seizure disorders. PSYCH: Denies depression. No suicidal ideation. RHEUMATOLOGIC: No lupus. No rheumatoid arthritis. HEMATOLOGIC: Denies any abnormal bleeding or bruising. No personal history of DVTs. SKIN: No rash. No skin cancer. PHYSICAL EXAM: VITAL SIGNS: Height 5 foot 4.5 inches, weight 252 pounds. BMI 42.8 Vital Signs Temp 97.2 F L 04/02/21 16:02 Pulse 92 04/02/21 16:02 Resp 18 04/02/21 16:02 BP 148/91 04/02/21 16:02 Pulse Ox GENERAL: Well-developed in no acute distress. HEENT: No scleral icterus. Extraocular movements grossly intact. Hears conversational speech. No nasal drainage. NECK: Supple without lymphadenopathy. CHEST: Nonlabored respirations with equal bilateral excursions. CARDIOVASCULAR: Regular rate and regular rhythm. Distal 2+ pulses. ABDOMEN: Obese, soft, nontender, nondistended. MUSCULOSKELETAL: No clubbing, cyanosis. NEURO: No focal or lateralizing signs. Cranial nerves 2 through 12 grossly within normal limits. PSYCH: Appropriate affect. Alert and oriented to person, place and time. SKIN: Good skin turgor. Well perfused. ASSESSMENT: 1. Morbid obesity due to excess calories 2. Body mass index of 45.9, initial to 42.8 3. Hypertensive heart disease. 4. Asthma 5. Gastroesophageal reflux disease 6. Generalized anxiety disorder 7. Motion sickness 8. Chronic gastritis PLAN: 1. Bariatric options between a sleeve, band and a Leno-en-Y gastric bypass were reviewed in detail. The patient elected for a sleeve gastrectomy. Robotic assisted approach described. 2. The [place] [facility] Data was also reviewed with benefits and risks as described. 3. An 8 page second-generation bariatric consent form was reviewed in detail including potential of bleeding, infection, leaks, adequate weight loss, nutritional deficiencies which the patient demonstrated understanding of the risks. 4. A 2 week high-protein low caloric 800 kcal diet described to address hepatomegaly. 5. Preoperative labs including complete metabolic panel and CBC with type and screen recommended. 6. DVT prophylaxis per [place] [facility]. 7. Antibiotic prophylaxis. 8. Inpatient hospitalization anticipated for more than 2 nights. 9. All questions and concerns were addressed with the patient. 10. She is at elevated risk due to hypertensive heart disease and use of diuretics 11. Overall, patient has expressed understanding of bariatric care including postoperative diet and commitment of lifestyle. Patient should benefit from surgical intervention for correction of her morbid obesity. Objective - Vital Signs Vital signs: Vital Signs Temp 97.2 F L 04/02/21 16:02 Pulse 92 04/02/21 16:02 Resp 18 04/02/21 16:02 BP 148/91 04/02/21 16:02 Pulse Ox Intake & Output 04/01/21 04/02/21 04/02/21 18:59 06:59 18:59 Weight 114.759 kg
== END | disposition home or self-care (01) ==
LOC: BARWHC3 14:39
PROVIDERS: ATTEND Surgery Plastic and Reconstructive Surgery
DX: E66.01 Morbid (severe) obesity due to excess calories (principal); I11.9 Hypertensive heart disease without heart failure; J45.909 Unspecified asthma, uncomplicated; K21.9 Gastro-esophageal reflux disease without esophagitis; F41.1 Generalized anxiety disorder; T75.3XXA Motion sickness, initial encounter; K29.50 Unspecified chronic gastritis without bleeding; Z68.42 Body mass index [BMI] 45.0-49.9, adult
CPT/HCPCS: 99211

== ENCOUNTER 2021-04-14 08:00 | Inpatient (IN) | payer MEDICAID ==
--- NOTE | 2021-04-14 07:50 | P.GSHP ---
History of Present Illness H&P Date: 04/14/21 CHIEF COMPLAINT: Morbid obesity HISTORY OF PRESENT ILLNESS: Joann Forbes is a 61-year-old female who comes with lifelong morbid obesity. She is now looking into the sleeve gastrectomy. She has completed medically supervised weight loss, cardiac risk assessment. She presents for sleeve gastrectomy. At height of 5 feet 4.5 inches, her ideal body weight is 144 pounds. She comes was 264 pounds. Her body mass index is 45.9 down to 44.8. She is 120 pounds overweight. PAST MEDICAL HISTORY: 1. Morbid obesity due to excess calories 2. Body mass index of 45.9, initial 3. Hypertensive heart disease. 4. Asthma 5. Gastroesophageal reflux disease 6. Generalized anxiety disorder 7. Motion sickness PAST SURGICAL HISTORY: 1. Appendectomy 2. Hysterectomy HOME MEDICATIONS: Home Medications Medication Instructions Recorded Confirmed Estrogens, Conjugated Cream 1 dose VAGINAL Q72H 09/01/16 10/09/20 [Premarin Cream] Montelukast [Singulair] 10 mg PO HS 09/01/16 10/09/20 Multivitamins, Thera [Multivitamin 1 tab PO DAILY 09/01/16 10/09/20 (formulary)] Testosteron Unknown Dose 1 dose IM Q60D 09/01/16 10/09/20 Triamterene/Hydrochlorothiazid 1 tab PO QAM 09/01/16 10/09/20 [Triamterene-Hctz 37.5-25 mg Cp] amLODIPine BESYLATE [Amlodipine 5 mg PO HS 09/01/16 10/09/20 Besylate] Azelastine HCl 1 applic INTRANASAL BID PRN 08/08/20 10/09/20 Cholecalciferol [Vitamin D3 (25 5,000 unit PO DAILY 09/30/20 10/09/20 Mcg = 1000 Iu)] Ferrous Sulfate [Iron (65 MG 325 mg PO DAILY 09/30/20 10/09/20 Elemental)] Vilazodone HCl [Viibryd] 40 mg PO DAILY 09/30/20 10/09/20 Previous Rx's Medication Instructions Recorded Omeprazole [PriLOSEC] 40 mg PO DAILY #14 cap 10/02/20 ALLERGIES: Allergies Allergy/AdvReac Type Severity Reaction Status Date / Time Sulfa (Sulfonamide Allergy Rash/Hives Verified 10/09/20 12:07 Antibiotics) lisinopril AdvReac Cough Verified 10/09/20 12:07 SOCIAL HISTORY: Past tobacco use. FAMILY HISTORY: No family history of ulcerative colitis disease or Crohn's disease. Family history of morbid obesity. No lupus in the family. No reports of stomach or esophageal cancer. REVIEW OF ORGAN SYSTEMS: CONSTITUTIONAL: At height of 5 feet 4.5 inches, her ideal body weight is 144 pounds. She comes in 271 pounds. Her body mass index is 45.9. She is 127 pounds overweight. HEENT: Denies any active troubles with vision or hearing. ENDOCRINE: No diabetes. No hypothyroidism. CARDIOVASCULAR: No past reports of palpitations or heart attacks or chest pain. RESPIRATORY: No recent pneumonia. Denies asthma. GASTROINTESTINAL: Denies any bright red blood per rectum. No diarrhea. No constipation. Has gastroesohageal reflux disease MUSCULOSKELETAL: Has lower back pain and joint pain. Has osteoarthritis of the knees. NEURO: No headaches. No seizure disorders. PSYCH: Denies depression. No suicidal ideation. RHEUMATOLOGIC: No lupus. No rheumatoid arthritis. HEMATOLOGIC: Denies any abnormal bleeding or bruising. No personal history of DVTs. SKIN: No rash. No skin cancer. PHYSICAL EXAM: VITAL SIGNS: Height 5 foot 4.5 inches, weight 264 pounds. BMI 44.8 GENERAL: Well-developed in no acute distress. HEENT: No scleral icterus. Extraocular movements grossly intact. Hears conversational speech. No nasal drainage. NECK: Supple without lymphadenopathy. CHEST: Nonlabored respirations with equal bilateral excursions. CARDIOVASCULAR: Regular rate and regular rhythm. Distal 2+ pulses. ABDOMEN: Obese, soft, nontender, nondistended. MUSCULOSKELETAL: No clubbing, cyanosis. NEURO: No focal or lateralizing signs. Cranial nerves 2 through 12 grossly within normal limits. PSYCH: Appropriate affect. Alert and oriented to person, place and time. SKIN: Good skin turgor. Well perfused. ASSESSMENT: 1. Morbid obesity due to excess calories 2. Body mass index of 45.9, initial 3. Hypertensive heart disease. 4. Asthma 5. Gastroesophageal reflux disease 6. Generalized anxiety disorder 7. Motion sickness 8. Chronic gastritis PLAN: 1. Bariatric options between a sleeve, band and a Leno-en-Y gastric bypass were reviewed in detail. The patient elected for a sleeve gastrectomy. Robotic assisted approach described. 2. The [place] [facility] Data was also reviewed with benefits and risks as described. 3. An 8 page second-generation bariatric consent form was reviewed in detail including potential of bleeding, infection, leaks, adequate weight loss, nutritional deficiencies which the patient demonstrated understanding of the risks. 4. A 2 week high-protein low caloric 800 kcal diet described to address hepatomegaly. 5. Preoperative labs including complete metabolic panel and CBC with type and screen recommended. 6. DVT prophylaxis per [place] [facility]. 7. Antibiotic prophylaxis. 8. Inpatient hospitalization anticipated for more than 2 nights. 9. All questions and concerns were addressed with the patient. 10. She is at elevated risk for perioperative complications for pre-existing history of heart arrhythmia including DVTs. 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 Thyroid nodule. Low iron & zinc. Minor varicose veins. Sl edema Rt ankle. History of Any Multi-Drug Resistant Organisms: None Reported Past Surgical History: Appendectomy, Hysterectomy Additional Past Surgical History / Comment(s): RIGHT LEG VEIN STRIPPING. OOPHERECTOMIES. SINUS SURGERY. Colonoscopies, EGD. Biopsy thyroid nodules Past Anesthesia/Blood Transfusion Reactions: Motion Sickness Smoking Status: Former smoker - Past Family History Brother(s) Family Medical History: Cancer Additional Family Medical History / Comment(s): at age 1, poss lymphoma Medications and Allergies Home Medications Medication Instructions Recorded Confirmed Type Estrogens, Conjugated Cream 1 dose VAGINAL Q72H 09/01/16 04/08/21 History [Premarin Cream] Montelukast [Singulair] 10 mg PO HS 09/01/16 04/08/21 History Multivitamins, Thera [Multivitamin 1 tab PO DAILY 09/01/16 04/08/21 History (formulary)] Triamterene/Hydrochlorothiazid 1 tab PO QAM 09/01/16 04/08/21 History [Triamterene-Hctz 37.5-25 mg Cp] amLODIPine BESYLATE [Amlodipine 5 mg PO HS 09/01/16 04/08/21 History Besylate] Azelastine HCl 1 applic INTRANASAL BID PRN 08/08/20 04/08/21 History Cholecalciferol [Vitamin D3 (25 5,000 unit PO DAILY 09/30/20 04/08/21 History Mcg = 1000 Iu)] Ferrous Sulfate [Iron (65 MG 325 mg PO DAILY 09/30/20 04/08/21 History Elemental)] Vilazodone HCl [Viibryd] 40 mg PO DAILY 09/30/20 04/08/21 History Omeprazole [PriLOSEC] 40 mg PO DAILY #14 cap 10/02/20 04/08/21 Rx Zinc Gluconate [Zinc] 50 mg PO DAILY 04/02/21 04/08/21 History Acetaminophen [Tylenol Extra 500 mg PO DIRECTED PRN 04/08/21 04/08/21 History Strength] Allergies Allergy/AdvReac Type Severity Reaction Status Date / Time Sulfa (Sulfonamide Allergy Rash/Hives Verified 04/08/21 15:02 Antibiotics) lisinopril AdvReac Cough Verified 04/08/21 15:02
[~2021-04-14 08:00] MED LIST changes: +CHLORHEXIDINE GLUCONATE 15 ML CUP MUCOUS MEM PRN; +DEXAMETHASONE SOD PHOSPHATE 4 MG/ML 1 ML VIAL IV ONE; +ENOXAPARIN 40 MG/0.4 ML SYRINGE SQ PRN; -LACTATED RINGERS 1,000 ML IV SCH; +MIDAZOLAM 2 MG/2 ML VIAL IV PRN; +ONDANSETRON 4 MG/2 ML VIAL IVP ONE; +PANTOPRAZOLE 40 MG/10 ML VIAL IVP PRN; +SCOPOLAMINE 1.5MG/72HR PATCH TRANSDERM ONE
[2021-04-14] MEDS ORDERED: ACETAMINOPHEN TAB 500 MG TAB PO STA (08:52)
[2021-04-14] MEDS ORDERED: GABAPENTIN 300 MG CAP PO STA (08:53)
[2021-04-14] MEDS ORDERED: ACETAMINOPHEN TAB 500 MG TAB ONE (08:54)
[2021-04-14] MEDS: LACTATED RINGERS 1,000 ML IV SCH (08:56)
[2021-04-14] MEDS: MELOXICAM 7.5 MG TAB PO SCH ×2 (08:58→14:33)
[2021-04-14 09:13] LABS: ALT 36 U/L (4-34); AST 45 U/L (14-36); African American GFR (CKD) >90 (>60 ml/min/1.73 sqM); Albumin 4.5 g/dL (3.5-5.0); Alkaline Phosphatase 91 U/L (38-126); Anion Gap 11 mmol/L; Blood Urea Nitrogen 18 mg/dL (7-17); Calcium 9.7 mg/dL (8.4-10.2); Carbon Dioxide 27 mmol/L (22-30); Chloride 102 mmol/L (98-107); Glucose 125 mg/dL (74-99); Non-African American GFR(CKD) 82 (>60 ml/min/1.73 sqM); Potassium 3.4 mmol/L (3.5-5.1); Sodium 140 mmol/L (137-145); Total Bilirubin 0.6 mg/dL (0.2-1.3); Total Protein 7.7 g/dL (6.3-8.2)
[2021-04-14] MEDS ORDERED: NEOSTIGMINE 1 MG/ML 10 ML VIAL ONE (10:05)
[2021-04-14] MEDS ORDERED: GLYCOPYRROLATE 0.2 MG/ML 2 ML VIAL ONE (10:05)
[2021-04-14] MEDS ORDERED: LIDOCAINE 1% INJ 10MG/ML (20 ML MDV) ONE (10:05)
[2021-04-14] MEDS ORDERED: ROCURONIUM 10 MG/ML (5 ML VIAL) IV ONE (10:05)
[2021-04-14] MEDS ORDERED: MIDAZOLAM 2 MG/2 ML VIAL ONE (10:05)
[2021-04-14] MEDS ORDERED: SUCCINYLCHOLINE CHLORIDE 100 MG/5 ML SYR IV ONE (10:05)
[2021-04-14] MEDS ORDERED: fentaNYL (PF) 50 MCG/ML 2 ML AMP ONE (10:05)
[2021-04-14] MEDS ORDERED: PHENYLEPHRINE-0.9% NACL SYG 1,000 MCG/10 ML SYRINGE ONE (10:05)
[2021-04-14] MEDS ORDERED: PROPOFOL 10 MG/ML 20 ML VIAL IV ONE (10:05)
[2021-04-14] MEDS ORDERED: LIDOCAINE 1%-EPI 1:100,000 20 ML VIAL SQ ONE (10:35)
[2021-04-14] MEDS ORDERED: LACTATED RINGERS 1,000 ML IV ONE (11:45)
[2021-04-14] MEDS ORDERED: HYDROmorphone 1 MG/ML 1 ML SYRINGE IVP PRN (12:07)
[2021-04-14] MEDS ORDERED: NALOXONE 0.4 MG/ML 1 ML VIAL IV PRN (12:07)
[2021-04-14] MEDS ORDERED: diphenhydrAMINE 50 MG/ML 1 ML VIAL IVP PRN (12:07)
--- NOTE | 2021-04-14 12:11 | P.OP ---
Date of Procedure: 04/14/21 Preoperative Diagnosis: Morbid obesity, BMI 41.0 Postoperative Diagnosis: Same, severe peritoneal adhesions epigastrium midline Procedure(s) Performed: Robotic sleeve gastrectomy, extensive lysis of adhesions over 30 minutes Anesthesia: GETA, local Surgeon: Jailene Morales Estimated Blood Loss (ml): 5 Pathology: other (Sleeve gastrectomy) Condition: stable Disposition: floor Operative Findings: 1. Extensive adhesions epigastrium and bilateral upper abdomen requiring lysis of adhesions over 30 minutes, omentum to abdominal wall 2. Sleeve gastrectomy using 6 staplers 3. Gastric sleeve from that 28 cm x 4 cm
[2021-04-14] MEDS ORDERED: ONDANSETRON 4 MG/2 ML VIAL IVP ONE (12:41)
[2021-04-14] MEDS: HYDROmorphone 0.5 MG/0.5 ML SYRINGE IVP PRN ×2 (12:46→19:45)
[2021-04-14] MEDS ORDERED: DEXAMETHASONE SOD PHOSPHATE 10 MG/ML 1 ML VIAL IV PRN (14:31)
[2021-04-14] MEDS ORDERED: AZELASTINE 137MCG/SPRAY INTRANASAL PRN (14:31)
[2021-04-14] MEDS: 0.9% NACL WITH KCL 20 MEQ/L 1,000 ML IV SCH ×2 (14:33→19:47)
[2021-04-14] MEDS: ALBUTEROL NEBULIZED 2.5 MG/3 ML INHALATION SCH ×2 (15:52→20:29)
[2021-04-14] MEDS: ACETAMINOPHEN IV (For NPO) 1,000 MG in EMPTY BAG 1 BAG IVPB SCH (17:07)
[2021-04-14] MEDS: DEXAMETHASONE SOD PHOSPHATE 4 MG/ML 1 ML VIAL IV SCH (17:09)
[2021-04-14] MEDS: ONDANSETRON 4 MG/2 ML VIAL IVP SCH (17:10)
[2021-04-14] MEDS: HYOSCYAMINE ORAL DROPS 1.875 MG/15 ML BOTTLE PO SCH (18:08)
[2021-04-14] MEDS: SIMETHICONE 40 MG/0.6 ML DROPS 2,000 MG/30 ML BOTTLE PO SCH (18:08)
[2021-04-14] MEDS: amLODIPine 5 MG TAB PO SCH (19:47)
[2021-04-14] MEDS: MONTELUKAST 10 MG TAB PO SCH (19:47)
[2021-04-15] MEDS: HYOSCYAMINE ORAL DROPS 1.875 MG/15 ML BOTTLE PO SCH ×5 (00:21→23:37)
[2021-04-15] MEDS: SIMETHICONE 40 MG/0.6 ML DROPS 2,000 MG/30 ML BOTTLE PO SCH ×5 (00:21→23:37)
[2021-04-15] MEDS: ACETAMINOPHEN IV (For NPO) 1,000 MG in EMPTY BAG 1 BAG IVPB SCH ×4 (00:21→17:54)
[2021-04-15] MEDS: ONDANSETRON 4 MG/2 ML VIAL IVP SCH ×5 (00:22→23:33)
[2021-04-15] MEDS: DEXAMETHASONE SOD PHOSPHATE 4 MG/ML 1 ML VIAL IV SCH ×5 (00:22→23:32)
[2021-04-15] MEDS: 0.9% NACL WITH KCL 20 MEQ/L 1,000 ML IV SCH ×3 (03:50→18:00)
[2021-04-15] MEDS: LACTATED RINGERS 1,000 ML IV SCH (05:37)
[2021-04-15] MEDS: PANTOPRAZOLE 40 MG/10 ML VIAL IV SCH (07:52)
[2021-04-15] MEDS: ENOXAPARIN 40 MG/0.4 ML SYRINGE SQ SCH (07:53)
[2021-04-15] MEDS: ALBUTEROL NEBULIZED 2.5 MG/3 ML INHALATION SCH ×4 (09:06→20:59)
[2021-04-15 09:22] LABS: Basophils # (A) 0.01 X 10*3/uL (0.00-0.10); Basophils % (A) 0.1 %; Eosinophils # (A) 0 X 10*3/uL (0.04-0.35); Eosinophils % (A) 0 %; HCT 42.6 % (37.2-46.3); HGB 13.6 g/dL (12.0-15.0); Lymphocytes # (A) 0.85 X 10*3/uL (0.90-5.00); Lymphocytes % (A) 7.4 %; MCH 27.4 pg (27.0-32.0); MCHC 31.9 g/dL (32.0-37.0); MCV 85.9 fL (80.0-97.0); Mean Platelet Volume 11.1 fL (9.5-12.2); Monocytes # (A) 0.23 X 10*3/uL (0.20-1.00); Neutrophils # (A) 10.33 X 10*3/uL (1.80-7.70); Neutrophils % (A) 90.1 %; Platelet Count 293 X 10*3/uL (140-440); RBC 4.96 X 10*6/uL (4.10-5.20); RDW 14.5 % (11.5-14.5); WBC 11.47 X 10*3/uL (4.50-10.00)
--- NOTE | 2021-04-15 11:37 | FL ---
EXAMINATION TYPE: FL UGI DATE OF EXAM: 04/15/2021 Gastric sleeve LIMITED UPPER GI: CLINICAL HISTORY: Morbid Obesity, gastric sleeve placed earlier today. TECHNIQUE: Limited upper GI is performed utilizing 2-3 oz of Omnipaque. FINDINGS: The patient swallowed contrast without difficulty or delay. Esophageal peristalsis and mo tility are within normal limits. Gastric sleeve is noted. There is good flow of contrast. There is n o evidence of contrast extravasation to suggest leak. IMPRESSION: No evidence of leak or significant obstruction status post gastric sleeve.
[2021-04-15] MEDS: MELOXICAM 7.5 MG TAB PO SCH (12:23)
[2021-04-15] MEDS: TRIAMTERENE-HCTZ 37.5-25MG 1 EACH CAP PO SCH (12:24)
[2021-04-15] MEDS: NON FORMULARY DRUG (Vilazodone Hcl [Viibryd] 40 MG Tablet) PO SCH (12:25)
[2021-04-15 13:15] LABS: African American GFR (CKD) 91.6 (60.0-200.0); Albumin 3.9 g/dL (3.80-4.90); Albumin/Globulin Ratio 1.56 (1.60-3.17); Anion Gap 11.9 mmol/L (4.00-12.00); BUN/Creat Ratio 16.25 Ratio (12.00-20.00); Calcium 8.4 mg/dL (8.7-10.3); Carbon Dioxide 25.1 mmol/L (21.6-31.8); Globulin 2.5 g/dL (1.6-3.3); Potassium 3.8 mmol/L (3.5-5.5); Total Bilirubin 0.4 mg/dL (0.3-1.2); Total Protein 6.4 g/dL (6.2-8.2)
[2021-04-15 14:10] VITALS: BMI 40.9
[2021-04-15 14:17] LABS: African American GFR (CKD) 91.6 (60.0-200.0); Anion Gap 8.7 mmol/L (4.00-12.00); Calcium 8.1 mg/dL (8.7-10.3); Carbon Dioxide 26.3 mmol/L (21.6-31.8); Magnesium 1.8 mg/dL (1.5-2.4); Phosphorus 3.2 mg/dL (2.4-5.1); Potassium 3.7 mmol/L (3.5-5.5)
[2021-04-15] MEDS ORDERED: SODIUM CHLORIDE 0.9% 2,000 ML IV ONE (16:09)
--- NOTE | 2021-04-15 16:13 | P.PN ---
Subjective Progress Note Date: 04/15/21 CHIEF COMPLAINT: Morbid obesity HISTORY OF PRESENT ILLNESS: Patient is status post robotic sleeve gastrectomy and extensive lysis of adhesions. Patient reports that her pain is controlled. She did have some nausea after drinking citrus flavored liquids. The nausea has now resolved. She has only taken and a few sips of broth and a couple of other liquid items. Patient has been up and ambulating. She is passing small amount of flatus. Afebrile. WBC 11.47 hematoma 13.6 sodium 138 potassium is 3.7 creatinine 0.8 magnesium 1.8 upper GI shows no evidence of leak or obstruction. Patient did meet with the bariatric dietitian. PHYSICAL EXAM: VITAL SIGNS: Reviewed GENERAL: Well-developed in no acute distress. HEENT: No sclera icterus. Extraocular movements grossly intact. Moist buccal mucosa. Head is atraumatic, normocephalic. Hears conversational speech. No nasal drainage. NECK: Supple without lymphadenopathy. CHEST: Non-labored respirations and equal bilateral excursions. CARDIOVASCULAR: Palpable 2+ radial pulses. ABDOMEN: Soft. Nondistended. MUSCULOSKELETAL: No clubbing or cyanosis. NEUROLOGIC: No focal or lateralizing signs. Cranial nerves II through XII grossly intact. PSYCH: Appropriate affect. Alert and oriented to person, place and time. SKIN: Well perfused. Good skin turgor. ASSESSMENT: 1. Morbid obesity, BMI 41.0 2. Severe peritoneal adhesions epigastrium midline PLAN: -We'll give a 2 L fluid bolus -Continue bariatric clear liquid diet -Encourage patient to ambulate -Continue wear abdominal binder -Encourage incentive spirometer use -Continue pain medication as needed -Continue antiemetics -GI prophylaxis Protonix and DVT prophylaxis Lovenox Physician Medical Cash Poster note has been reviewed by physician. Signing provider agrees with the documented findings, assessment, and plan of care. Objective - Vital Signs Vital signs: Vital Signs Temp 98.0 F 04/15/21 14:00 Pulse 62 04/15/21 14:00 Resp 16 04/15/21 14:00 BP 141/83 04/15/21 14:00 Pulse Ox 97 04/15/21 14:00 Intake & Output 04/14/21 04/15/21 04/15/21 18:59 06:59 18:59 Intake Total 1350 Output Total 5 Balance 1345 Weight 110 kg 110 kg Intake: IV 1350 Output: Estimated Blood Loss 5 Other: Voiding Method Toilet # Voids 1 1 - Labs CBC & Chem 7: 04/15/21 06:38 04/15/21 06:38 Labs: Abnormal Lab Results - Last 24 Hours (Table) 04/15/21 04/15/21 04/15/21 Range/Units 06:36 06:38 06:38 WBC 11.47 H (4.50-10.00) X 10*3/uL MCHC 31.9 L (32.0-37.0) g/dL Immature Gran # 0.05 H (0.00-0.04) X 10*3/uL Neutrophils # 10.33 H (1.80-7.70) X 10*3/uL Lymphocytes # 0.85 L (0.90-5.00) X 10*3/uL Eosinophils # 0 L (0.04-0.35) X 10*3/uL Glucose 146 H (70-110) mg/dL Calcium 8.4 L 8.1 L (8.7-10.3) mg/dL AST 54 H (13-35) U/L ALT 65 H (8-44) U/L Albumin/Globulin Ratio 1.56 L (1.60-3.17) g/dL
[2021-04-15] MEDS: MONTELUKAST 10 MG TAB PO SCH (21:02)
[2021-04-15] MEDS: amLODIPine 5 MG TAB PO SCH (21:02)
[2021-04-16] MEDS: ACETAMINOPHEN IV (For NPO) 1,000 MG in EMPTY BAG 1 BAG IVPB SCH ×3 (00:19→13:33)
[2021-04-16] MEDS: 0.9% NACL WITH KCL 20 MEQ/L 1,000 ML IV SCH ×2 (05:18→14:16)
[2021-04-16] MEDS: ONDANSETRON 4 MG/2 ML VIAL IVP SCH ×2 (05:19→13:34)
[2021-04-16] MEDS: DEXAMETHASONE SOD PHOSPHATE 4 MG/ML 1 ML VIAL IV SCH ×2 (05:19→13:34)
[2021-04-16] MEDS: HYOSCYAMINE ORAL DROPS 1.875 MG/15 ML BOTTLE PO SCH ×2 (05:41→13:52)
[2021-04-16] MEDS: SIMETHICONE 40 MG/0.6 ML DROPS 2,000 MG/30 ML BOTTLE PO SCH ×2 (05:41→13:52)
[2021-04-16] MEDS: LACTATED RINGERS 1,000 ML IV SCH (05:42)
[2021-04-16] MEDS: NON FORMULARY DRUG (Vilazodone Hcl [Viibryd] 40 MG Tablet) PO SCH (07:06)
[2021-04-16] MEDS: ENOXAPARIN 40 MG/0.4 ML SYRINGE SQ SCH (07:11)
[2021-04-16] MEDS: MELOXICAM 7.5 MG TAB PO SCH (07:11)
[2021-04-16] MEDS: PANTOPRAZOLE 40 MG/10 ML VIAL IV SCH (07:12)
[2021-04-16] MEDS: TRIAMTERENE-HCTZ 37.5-25MG 1 EACH CAP PO SCH (07:12)
[2021-04-16] MEDS ORDERED: bisacodyL 5 MG TABLET.DR PO PRN (08:00)
[2021-04-16] MEDS: ALBUTEROL NEBULIZED 2.5 MG/3 ML INHALATION SCH ×2 (09:06→12:06)
--- NOTE | 2021-04-16 10:48 | P.DS ---
Providers Date of admission: 04/14/21 08:17 Expected date of discharge: 04/16/21 Attending physician: Jailene Morales Primary care physician: Vincent You [facility] Hospital Course: Discharge diagnosis 1. Morbid obesity, BMI 41.0 status post Robotic sleeve gastrectomy and extensive lysis of adhesions 2. Severe peritoneal adhesions epigastrium midline 3. Leukocytosis likely secondary to the Decadron 4. Hypokalemia resolved Hospital course Joann Forbes is a 61-year-old female who comes with lifelong morbid obesity. Patient is status post Robotic sleeve gastrectomy and extensive lysis of adhesions. Patient tolerated surgery well. Her pain is controlled. She is tolerating bariatric clear liquid diet. She is having flatus. Denies any difficulty urinating. Has been up and ambulating. Afebrile. Patient is stable for discharge. Physician Dry Sand Molder note has been reviewed by physician. Signing provider agrees with the documented findings, assessment, and plan of care. Patient Condition at Discharge: Stable Plan - Discharge Summary Discharge Rx Participant: No New Discharge Prescriptions: New Simethicone 40 mg/0.6 ml Drops [Mylicon Drops] 40 mg PO PCHS PRN #30 ml PRN Reason: Gas bisacodyL [Dulcolax] 5 mg PO DAILY PRN #10 tablet.dr PRN Reason: Constipation Ondansetron Odt [Zofran Odt] 4 mg PO Q8HR PRN #9 tab PRN Reason: Nausea Acetaminophen Oral Susp [Tylenol] 1,000 mg PO Q4-6H PRN #400 ml PRN Reason: Pain Continue amLODIPine BESYLATE [Amlodipine Besylate] 5 mg PO HS Estrogens, Conjugated Cream [Premarin Cream] 1 dose VAGINAL Q72H Montelukast [Singulair] 10 mg PO HS Triamterene/Hydrochlorothiazid [Triamterene-Hctz 37.5-25 mg Cp] 1 tab PO QAM Azelastine HCl 1 applic INTRANASAL BID PRN PRN Reason: Allergy Symptoms Vilazodone HCl [Viibryd] 40 mg PO DAILY Omeprazole [PriLOSEC] 40 mg PO DAILY #14 cap Discontinued Multivitamins, Thera [Multivitamin (formulary)] 1 tab PO DAILY Ferrous Sulfate [Iron (65 MG Elemental)] 325 mg PO DAILY Cholecalciferol [Vitamin D3 (25 Mcg = 1000 Iu)] 5,000 unit PO DAILY Zinc Gluconate [Zinc] 50 mg PO DAILY Acetaminophen [Tylenol Extra Strength] 500 mg PO DIRECTED PRN PRN Reason: Pain Discharge Medication List Estrogens, Conjugated Cream [Premarin Cream] 1 dose VAGINAL Q72H 09/01/16 [History] Montelukast [Singulair] 10 mg PO HS 09/01/16 [History] Triamterene/Hydrochlorothiazid [Triamterene-Hctz 37.5-25 mg Cp] 1 tab PO QAM 09/01/16 [History] amLODIPine BESYLATE [Amlodipine Besylate] 5 mg PO HS 09/01/16 [History] Azelastine HCl 1 applic INTRANASAL BID PRN 08/08/20 [History] Vilazodone HCl [Viibryd] 40 mg PO DAILY 09/30/20 [History] Omeprazole [PriLOSEC] 40 mg PO DAILY #14 cap 10/02/20 [Rx] Acetaminophen Oral Susp [Tylenol] 1,000 mg PO Q4-6H PRN #400 ml 04/16/21 [Rx] Ondansetron Odt [Zofran Odt] 4 mg PO Q8HR PRN #9 tab 04/16/21 [Rx] Simethicone 40 mg/0.6 ml Drops [Mylicon Drops] 40 mg PO PCHS PRN #30 ml 04/16/21 [Rx] bisacodyL [Dulcolax] 5 mg PO DAILY PRN #10 tablet. 04/16/21 [Rx] Follow up [facility]ment[facility] [facility] Patient Instructions/Handouts: Nutrition after Bariatric Surgery (DC), Nutrition after Bariatric Surgery (GEN), Laparoscopic Sleeve Gastrectomy (DC) Activity/Diet/Wound Care/Special Instructions: Wear abdominal binder at all times for comfort. No lifting over 4 pounds in 4 weeks until May 12. February shower. No bath tub soaks for two weeks until Jul 29 Use ice along incisions for the today to prevent swelling. Cut or crush all pills to the size smaller than a tic tac No straws or carbonated beverages Hold off taking diuretic until oral intake has increased Discharge Disposition: HOME SELF-CARE
[2021-04-16 14:08] VITALS: BP 164/76; PULSE 68; RESP 18; TEMP 98.2
== END 2021-04-16 14:11 | disposition home or self-care (01) | DRG 621 ==
LOC: 2ORMAIN 08:17 → 4SSUR 11:59
PROVIDERS: ADMIT Surgery Plastic and Reconstructive Surgery; ATTEND Surgery Plastic and Reconstructive Surgery
PROC: 0DB64Z3 Excision of Stomach, Percutaneous Endoscopic Approach, Vertical (ICD-10-PCS; principal; 2021-04-14 09:30)
PROC: 8E0W4CZ Robotic Assisted Procedure of Trunk Region, Percutaneous Endoscopic Approach (ICD-10-PCS; principal; 2021-04-14 09:30)
PROC: 0DNW4ZZ Release Peritoneum, Percutaneous Endoscopic Approach (ICD-10-PCS; principal; 2021-04-14 09:30)
DX: E66.01 Morbid (severe) obesity due to excess calories (principal); E87.6 Hypokalemia; F41.1 Generalized anxiety disorder; I11.9 Hypertensive heart disease without heart failure; J45.909 Unspecified asthma, uncomplicated; K21.9 Gastro-esophageal reflux disease without esophagitis; K29.50 Unspecified chronic gastritis without bleeding; K66.0 Peritoneal adhesions (postprocedural) (postinfection); D72.829 Elevated white blood cell count, unspecified; T38.0X5A Adverse effect of glucocorticoids and synthetic analogues, initial encounter; T75.3XXA Motion sickness, initial encounter; Z68.41 Body mass index [BMI] 40.0-44.9, adult; Z79.899 Other long term (current) drug therapy; Z87.891 Personal history of nicotine dependence; Z90.710 Acquired absence of both cervix and uterus; Z90.49 Acquired absence of other specified parts of digestive tract
CPT/HCPCS: 74240; 80051; 80053; 82310; 82565; 83735; 84100; 84520; 85025; 86850; 86900; 86901; 88307; 94640; 94760; 94762

== ENCOUNTER → 2021-04-18 | Outpatient (CLI) | payer MEDICAID ==
[2021-04-18 11:51] VITALS: BP 152/85; PULSE 71; TEMP 98.2; BMI 41.9
--- NOTE | 2021-04-18 12:21 | P.PN ---
Subjective Progress Note Date: 04/18/21 Clinically stable. Pain tolerable. Abdominal binder discontinued by patient. No signs of infection. Patient stopped her diuretic temporarily. She reports high blood pressure yesterday and restarted. Caution of diuretic use and dehydration reviewed. Follow up on the week. Overall stable. Objective - Vital Signs Vital signs: Vital Signs Temp 98.2 F 04/18/21 11:48 Pulse 71 04/18/21 11:48 Resp BP 152/85 04/18/21 11:48 Pulse Ox Intake & Output 04/17/21 04/18/21 04/18/21 18:59 06:59 18:59 Weight 112.491 kg
== END | disposition home or self-care (01) ==
LOC: BARWHC3 10:49
PROVIDERS: ATTEND Surgery Plastic and Reconstructive Surgery
DX: E66.01 Morbid (severe) obesity due to excess calories (principal)
CPT/HCPCS: 99211

== ENCOUNTER → 2021-04-23 | Outpatient (CLI) | payer MEDICAID | END | disposition home or self-care (01) | CPT/HCPCS: 97802; 99211 ==

== ENCOUNTER → 2021-05-07 | Outpatient (CLI) | payer MEDICAID ==
--- NOTE | 2021-05-07 16:00 | P.PN ---
Subjective Progress Note Date: 05/07/21 DATE OF SERVICE: 05/07/2021 CHIEF COMPLAINT: Status post sleeve gastrectomy HISTORY OF PRESENT ILLNESS: Joann Forbes is a 60-year-old female is status post sleeve gastrectomy, 04/14/2021. She has lost 23 pounds in 1 month. She has severe itching. She has trouble wearing a bra. She denies gastroesophageal reflux disease. She denies dysphagia. Her protein intake is 75 g daily. She has My[employer]itness pal premium. She is increased walking. She is getting 5000 steps daily. She is doing well. Her bowels are working. At height of 5 feet 4.5 inches, her ideal body weight is 144 pounds. She comes in 230 pounds from 238 pounds, 2 weeks ago. She lost 9 pounds in 2 weeks. Her body mass index is 45.9 down to 38.9. Lifetime weight loss 41 pounds. Percent lifetime excess weight loss is 33 %. She is 86 pounds overweight. PHYSICAL EXAM: VITAL SIGNS: Height 5 foot 4.5 inches, weight 230 pounds. BMI 38.9 Vital Signs Temp 98.3 F 05/07/21 16:03 Pulse 81 05/07/21 16:03 Resp 18 05/07/21 16:03 BP 136/83 05/07/21 16:03 Pulse Ox GENERAL: Well-developed in no acute distress. HEENT: No scleral icterus. Extraocular movements grossly intact. Hears conversational speech. No nasal drainage. NECK: Supple without lymphadenopathy. CHEST: Nonlabored respirations with equal bilateral excursions. CARDIOVASCULAR: Regular rate and regular rhythm. Distal 2+ pulses. ABDOMEN: No infection. Nontender. No hernia. MUSCULOSKELETAL: No clubbing, cyanosis. NEURO: No focal or lateralizing signs. Cranial nerves 2 through 12 grossly within normal limits. PSYCH: Appropriate affect. Alert and oriented to person, place and time. SKIN: Good skin turgor. Well perfused. ASSESSMENT: 1. Morbid obesity due to excess calories 2. Body mass index of 45.9, initial to 38.9 3. Hypertensive heart disease. 4. Asthma 5. Gastroesophageal reflux disease 6. Generalized anxiety disorder 7. Motion sickness 8. Chronic gastritis 9. Status post sleeve gastrectomy PLAN: 1. Continue food diary journal. 2. Continue protein intake 75 g daily. 3. Follow up in 3 months post op. Objective - Labs CBC & Chem 7: 05/07/21 16:18 05/07/21 16:18
[2021-05-07 16:07] VITALS: BP 136/83; PULSE 81; RESP 18; TEMP 98.3; BMI 38.8
[2021-05-07 16:41] LABS: HCT 41.4 % (34.0-46.0); HGB 13.5 gm/dL (11.4-16.0); MCH 28.2 pg (25.0-35.0); MCHC 32.6 g/dL (31.0-37.0); MCV 86.6 fL (80.0-100.0); Mean Platelet Volume 8.6; Platelet Count 298 k/uL (150-450); RBC 4.78 m/uL (3.80-5.40); WBC 8.3 k/uL (3.8-10.6)
[2021-05-07 16:57] LABS: Partial Thromboplastin Time 26.5 sec (22.0-30.0); Prothrombin Time 10.5 sec (9.0-12.0)
[2021-05-08 01:25] LABS: Hemoglobin A1C 4.8 % (4.0-6.0)
[2021-05-08 18:11] LABS: % Iron Saturation 9.13 (12.00-45.00); African American GFR (CKD) 91.6 (60.0-200.0); Albumin 4.2 g/dL (3.80-4.90); Albumin/Globulin Ratio 1.56 (1.60-3.17); Anion Gap 18.7 mmol/L (4.00-12.00); BUN/Creat Ratio 23.75 Ratio (12.00-20.00); Calcium 9.4 mg/dL (8.7-10.3); Carbon Dioxide 22.3 mmol/L (21.6-31.8); Chol/HDL Ratio 5.82; Ferritin 301.2 ng/mL (10.0-291.0); Folate, Serum 12.4 ng/mL; Globulin 2.7 g/dL (1.6-3.3); LDL Cholesterol,Calculated 113.2 mg/dL (0.0-131.0); Magnesium 1.8 mg/dL (1.5-2.4); Phosphorus 4.5 mg/dL (2.4-5.1); Potassium 3.6 mmol/L (3.5-5.5); Total Bilirubin 0.6 mg/dL (0.3-1.2); Total Protein 6.9 g/dL (6.2-8.2); VLDL Calculation 21.8 mg/dL (5.00-40.00)
[2021-05-09 05:38] LABS: Vit B1(Thiamine) 61 ug/L (38-122)
[2021-05-09 12:51] LABS: Zinc, Serum 78 ug/dL (60-130)
[2021-05-12 07:06] LABS: Vitamin A 21 ug/dL (38-106)
[2021-05-12 23:31] LABS: Selenium 94 mcg/L (63-160)
== END | disposition home or self-care (01) ==
LOC: BARWHC3 15:38
PROVIDERS: ATTEND Surgery Plastic and Reconstructive Surgery
DX: E66.01 Morbid (severe) obesity due to excess calories (principal); I11.9 Hypertensive heart disease without heart failure; J45.909 Unspecified asthma, uncomplicated; K21.9 Gastro-esophageal reflux disease without esophagitis; F41.1 Generalized anxiety disorder; T75.3XXS Motion sickness, sequela; K29.50 Unspecified chronic gastritis without bleeding; Z98.84 Bariatric surgery status; Z68.42 Body mass index [BMI] 45.0-49.9, adult
CPT/HCPCS: 36415; 80053; 80061; 82306; 82525; 82607; 82728; 82746; 83036; 83540; 83550; 83735; 83970; 84100; 84134; 84255; 84425; 84443; 84590; 84630; 85027; 85610; 85730; 99211

== ENCOUNTER → 2021-07-07 | Outpatient (CLI) | payer MEDICAID ==
[2021-07-08 01:27] LABS: HCT 43.5 % (37.2-46.3); HGB 13.8 g/dL (12.0-15.0); MCH 27.3 pg (27.0-32.0); MCHC 31.7 g/dL (32.0-37.0); Mean Platelet Volume 11.8 fL (9.5-12.2); Platelet Count 264 X 10*3/uL (140-440); RBC 5.06 X 10*6/uL (4.10-5.20); RDW 15.4 % (11.5-14.5); WBC 5.77 X 10*3/uL (4.50-10.00)
[2021-07-08 04:13] LABS: Hemoglobin A1C 4.6 % (4.0-6.0)
[2021-07-08 06:01] LABS: INR 0.97 (0.90-1.11); Partial Thromboplastin Time 33.1 sec (23.5-31.0); Prothrombin Time 10.6 sec (9.9-11.9)
[2021-07-08 06:54] LABS: Ferritin 185.4 ng/mL (10.0-291.0)
[2021-07-08 08:19] LABS: % Iron Saturation 14.24 (12.00-45.00); ALT 25 U/L (8-44); AST 25 U/L (13-35); African American GFR (CKD) 79.4 (60.0-200.0); Albumin/Globulin Ratio 1.96 (1.60-3.17); Alkaline Phosphatase 97 U/L (41-126); BUN/Creat Ratio 17.78 Ratio (12.00-20.00); Calcium 9.3 mg/dL (8.7-10.3); Carbon Dioxide 26.9 mmol/L (21.6-31.8); Chloride 106 mmol/L (96-109); Chol/HDL Ratio 4.29; Cholesterol 176 mg/dL (0-200); Folate, Serum >24.0 ng/mL; Globulin 2.3 g/dL (1.6-3.3); Glucose 85 mg/dL (70-110); Iron 42 ug/dL (50-170); LDL Cholesterol,Calculated 116.8 mg/dL (0.0-131.0); Magnesium 2.2 mg/dL (1.5-2.4); Non-African American GFR(CKD) 68.5 (60.0-200.0); Phosphorus 4.4 mg/dL (2.4-5.1); Potassium 4.3 mmol/L (3.5-5.5); Sodium 141 mmol/L (135-145); Total Bilirubin 0.6 mg/dL (0.3-1.2); Total Iron Binding Capacity 295 ug/dL (228-460); Total Protein 6.8 g/dL (6.2-8.2)
[2021-07-08 13:01] LABS: Zinc, Serum 78 ug/dL (60-130)
[2021-07-09 09:14] LABS: Vitamin A 43 ug/dL (38-106)
== END | disposition home or self-care (01) ==
LOC: LABWHC1 14:31
PROVIDERS: ATTEND Surgery Plastic and Reconstructive Surgery
DX: E89.1 Postprocedural hypoinsulinemia (principal); D50.8 Other iron deficiency anemias; E44.0 Moderate protein-calorie malnutrition; E55.9 Vitamin D deficiency, unspecified; K74.1 Hepatic sclerosis; N19 Unspecified kidney failure; K50.90 Crohn's disease, unspecified, without complications
CPT/HCPCS: 36415; 80053; 80061; 82306; 82525; 82607; 82728; 82746; 83036; 83540; 83550; 83735; 83970; 84100; 84134; 84255; 84425; 84443; 84590; 84630; 85027; 85610; 85730

== ENCOUNTER 2021-11-21 07:48 | Day surgery (SDC) | payer MEDICAID ==
[2021-11-18 11:07] VITALS: BMI 33.1
[~2021-11-21 07:48] MED LIST changes: -CHLORHEXIDINE GLUCONATE 15 ML CUP MUCOUS MEM PRN; -DEXAMETHASONE SOD PHOSPHATE 4 MG/ML 1 ML VIAL IV ONE; -ENOXAPARIN 40 MG/0.4 ML SYRINGE SQ PRN; +LACTATED RINGERS 1,000 ML IV SCH; -MIDAZOLAM 2 MG/2 ML VIAL IV PRN; -ONDANSETRON 4 MG/2 ML VIAL IVP ONE; -PANTOPRAZOLE 40 MG/10 ML VIAL IVP PRN; -SCOPOLAMINE 1.5MG/72HR PATCH TRANSDERM ONE
[2021-11-21 08:20] VITALS: TEMP 97.6
[2021-11-21] MEDS ORDERED: LIDOCAINE 1% (10MG/ML) FOR IV START INTRADERMA ONE (08:38)
[2021-11-21] MEDS ORDERED: PROPOFOL 10 MG/ML 20 ML VIAL IV ONE (08:57)
--- NOTE | 2021-11-21 09:17 | P.PCN ---
Date of Procedure: 11/21/21 Procedure(s) Performed: BRIEF HISTORY: Patient is a 61-year-old pleasant female scheduled for an elective colonoscopy as a part of evaluation of prior history of colon polyps. Her last colonoscopy was 5 years ago. PROCEDURE PERFORMED: Colonoscopy with biopsy. PREOPERATIVE DIAGNOSIS: History of colon polyps. IV sedation per Anesthesia. PROCEDURE: After informed consent was obtained, the patient, was brought into the endoscopy unit. IV sedation was administered by Anesthesia under continuous monitoring. Digital rectal examination was normal. Initially the Olympus CF-160 flexible video colonoscope was then inserted in the rectum, gradually advanced into the cecum without any difficulty. Careful examination was performed as the scope was gradually being withdrawn. Ileocecal valve and the appendiceal orifice were visualized and appeared normal. Prep was excellent. Mucosa of the cecum, ascending colon, transverse colon, descending colon, sigmoid colon, appeared normal. In the distal sigmoid colon there was a 3 mm polyp that was removed by cold biopsy. Scattered sigmoid diverticulosis seen. The rectum appeared normal. Retroflexion was performed in the rectum and no lesions were seen. The patient tolerated the procedure well. IMPRESSION: 3 mm sigmoid colon polyp serous was cold biopsy Scattered sigmoid diverticulosis RECOMMENDATIONS: Findings of this examination were discussed with the patient as well as a family. She was advised to follow with the biopsy doesn't have a repeat colonoscopy in 5 years.
[2021-11-21 09:40] VITALS: BP 119/69; PULSE 65; RESP 16
== END 2021-11-21 10:11 | disposition home or self-care (01) ==
LOC: ORWHC2ENDO 07:48
PROVIDERS: ATTEND Internal Medicine Gastroenterology
DX: Z12.11 Encounter for screening for malignant neoplasm of colon (principal); K63.5 Polyp of colon; K57.30 Diverticulosis of large intestine without perforation or abscess without bleeding; Z86.010 Personal history of colon polyps; R73.03 Prediabetes; E07.9 Disorder of thyroid, unspecified; K21.9 Gastro-esophageal reflux disease without esophagitis; Z90.49 Acquired absence of other specified parts of digestive tract; Z90.710 Acquired absence of both cervix and uterus; Z98.84 Bariatric surgery status; Z98.890 Other specified postprocedural states; Z79.899 Other long term (current) drug therapy; Z88.2 Allergy status to sulfonamides; Z88.8 Allergy status to other drugs, medicaments and biological substances
CPT/HCPCS: 88305; 45380; J2704

== ENCOUNTER → 2021-11-24 | Outpatient (CLI) | payer MEDICAID ==
[2021-11-24 16:12] LABS: INR 0.9 (<1.2); Partial Thromboplastin Time 26.5 sec (22.0-30.0); Prothrombin Time 10.1 sec (9.0-12.0)
[2021-11-25 00:36] LABS: Estimated Average Glucose UNC
[2021-11-25 00:50] LABS: HCT 45.4 % (37.2-46.3); HGB 14.5 g/dL (12.0-15.0); MCH 28.8 pg (27.0-32.0); MCHC 31.9 g/dL (32.0-37.0); MCV 90.3 fL (80.0-97.0); Mean Platelet Volume 10.9 fL (9.5-12.2); NRBC Per 100 WBC 0 /100 WBCS (0.0-0.0); Platelet Count 247 X 10*3/uL (140-440); RBC 5.03 X 10*6/uL (4.10-5.20); RDW 13.6 % (11.5-14.5); WBC 6.19 X 10*3/uL (4.50-10.00)
[2021-11-25 00:58] LABS: % Iron Saturation 13.54 (12.00-45.00); ALT 17 U/L (8-44); AST 23 U/L (13-35); African American GFR (CKD) 78.7 (60.0-200.0); Albumin 4.3 g/dL (3.8-4.9); Albumin/Globulin Ratio 1.54 (1.60-3.17); Alkaline Phosphatase 92 U/L (41-126); Blood Urea Nitrogen 15.6 mg/dL (9.0-27.0); Calcium 9.3 mg/dL (8.7-10.3); Carbon Dioxide 25.2 mmol/L (20.0-27.5); Chloride 105 mmol/L (96-109); Globulin 2.8 g/dL (1.6-3.3); Glucose 96 mg/dL (70-110); Iron 45 ug/dL (50-170); Magnesium 2.1 mg/dL (1.5-2.4); Non-African American GFR(CKD) 67.9 (60.0-200.0); Phosphorus 3.6 mg/dL (2.4-5.1); Potassium 3.8 mmol/L (3.5-5.5); Sodium 142 mmol/L (135-145); Total Iron Binding Capacity 333 ug/dL (228-460); Total Protein 7.1 g/dL (6.2-8.2)
[2021-11-25 01:15] LABS: Chol/HDL Ratio 4.21 Ratio; LDL Cholesterol,Calculated 115.8 mg/dL (0.0-131.0); Prealbumin 22.5 mg/dL (18.0-42.0)
[2021-11-25 03:45] LABS: Folate, Serum >20.00 ng/mL (4.40-31.00)
[2021-11-25 12:08] LABS: Zinc, Serum 68 ug/dL (60-130)
[2021-11-26 10:26] LABS: Vit B1(Thiamine) 92 ug/L (38-122)
[2021-11-26 11:19] LABS: Vitamin A 49 ug/dL (38-106)
== END | disposition home or self-care (01) ==
LOC: LABWHC1 14:35
PROVIDERS: ATTEND Surgery Plastic and Reconstructive Surgery
DX: E66.01 Morbid (severe) obesity due to excess calories (principal); E89.1 Postprocedural hypoinsulinemia; D50.8 Other iron deficiency anemias; E44.0 Moderate protein-calorie malnutrition; E55.9 Vitamin D deficiency, unspecified; K74.1 Hepatic sclerosis; N19 Unspecified kidney failure; K50.90 Crohn's disease, unspecified, without complications
CPT/HCPCS: 36415; 80053; 80061; 82306; 82525; 82607; 82728; 82746; 83036; 83540; 83550; 83735; 83970; 84100; 84134; 84255; 84425; 84443; 84590; 84630; 85027; 85610; 85730

== ENCOUNTER → 2021-12-05 | Outpatient (CLI) | payer MEDICAID ==
--- NOTE | 2021-12-08 14:17 | MM ---
Reason for exam: screening (asymptomatic). Last mammogram was performed 1 year and 1 month ago. History: Patient is postmenopausal and is nulliparous. Family history of breast cancer in paternal cousin and breast cancer in paternal aunt at age 50. Taking estrogen for 10 years 5 months beginning at age 39. Physical Findings: A clinical breast exam by your physician is recommended on an annual basis and results should be correlated with mammographic findings. MG 3D Screening Mammo W/Cad Bilateral CC and MLO view(s) were taken. Prior study comparison: October 21, 2020, bilateral MG 3d screening mammo w/cad. September 05, 2019, bilateral MG 3d screening mammo w/cad. There are scattered fibroglandular densities. No significant changes when compared with prior studies. ASSESSMENT: Benign, BI-RAD 2 RECOMMENDATION: Routine screening mammogram of both breasts in 1 year.
== END | disposition home or self-care (01) ==
LOC: RADMAMWWP 16:32
PROVIDERS: ATTEND Family Medicine
DX: Z12.31 Encounter for screening mammogram for malignant neoplasm of breast (principal)
CPT/HCPCS: 77063; 77067

== ENCOUNTER → 2022-04-16 | Outpatient (CLI) | payer MEDICAID ==
[2022-04-16 16:32] LABS: INR 0.9 (<1.2); Prothrombin Time 9.8 sec (9.0-12.0)
[2022-04-16 23:03] LABS: HCT 43.4 % (37.2-46.3); HGB 14.2 g/dL (12.0-15.0); MCH 29.2 pg (27.0-32.0); MCHC 32.7 g/dL (32.0-37.0); MCV 89.1 fL (80.0-97.0); Mean Platelet Volume 10.9 fL (9.5-12.2); NRBC Per 100 WBC 0 /100 WBCS (0.0-0.0); Platelet Count 262 X 10*3/uL (140-440); RBC 4.87 X 10*6/uL (4.10-5.20); RDW 13.1 % (11.5-14.5); WBC 6.33 X 10*3/uL (4.50-10.00)
[2022-04-16 23:23] LABS: % Iron Saturation 11.63 (12.00-45.00); ALT 22 U/L (8-44); AST 19 U/L (13-35); African American GFR (CKD) 85.4 (60.0-200.0); Albumin 4.4 g/dL (3.8-4.9); Albumin/Globulin Ratio 1.81 (1.60-3.17); Alkaline Phosphatase 95 U/L (41-126); BUN/Creat Ratio 18.86 Ratio (12.00-20.00); Blood Urea Nitrogen 15.9 mg/dL (9.0-27.0); Calcium 9.3 mg/dL (8.7-10.3); Carbon Dioxide 26.9 mmol/L (20.0-27.5); Chloride 111 mmol/L (96-109); Globulin 2.4 g/dL (1.6-3.3); Glucose 94 mg/dL (70-110); Iron 38 ug/dL (50-170); Magnesium 2.2 mg/dL (1.5-2.4); Non-African American GFR(CKD) 73.7 (60.0-200.0); Phosphorus 4.1 mg/dL (2.4-5.1); Potassium 4.1 mmol/L (3.5-5.5); Sodium 152 mmol/L (135-145); Total Iron Binding Capacity 328 ug/dL (228-460); Total Protein 6.8 g/dL (6.2-8.2)
[2022-04-16 23:39] LABS: Chol/HDL Ratio 4.59 Ratio; LDL Cholesterol,Calculated 136.7 mg/dL (0.0-131.0); Prealbumin 23.4 mg/dL (18.0-42.0)
[2022-04-17 12:57] LABS: Zinc, Serum 38 ug/dL (60-130)
== END | disposition home or self-care (01) ==
LOC: LABPAT 14:46
PROVIDERS: ATTEND Surgery Plastic and Reconstructive Surgery
DX: E66.01 Morbid (severe) obesity due to excess calories (principal); E89.1 Postprocedural hypoinsulinemia; D50.8 Other iron deficiency anemias; D50.9 Iron deficiency anemia, unspecified; K91.2 Postsurgical malabsorption, not elsewhere classified; E44.0 Moderate protein-calorie malnutrition; E44.1 Mild protein-calorie malnutrition; E45 Retarded development following protein-calorie malnutrition; E55.9 Vitamin D deficiency, unspecified; K74.1 Hepatic sclerosis; N19 Unspecified kidney failure; T56.894A Toxic effect of other metals, undetermined, initial encounter; K50.90 Crohn's disease, unspecified, without complications
CPT/HCPCS: 80053; 80061; 82306; 82525; 82607; 82728; 82746; 83036; 83540; 83550; 83735; 83970; 84100; 84134; 84255; 84425; 84443; 84590; 84630; 85027; 85610; 85730

== ENCOUNTER → 2022-07-01 | Outpatient (CLI) | payer MEDICAID ==
[2022-07-01 15:45] VITALS: BP 154/81; PULSE 83; TEMP 98.3; BMI 32.8
--- NOTE | 2022-07-01 16:07 | P.BASOAP ---
Subjective Progress Note Date: 07/01/22 She has weight gain. She has 5 pound weight gain. She is over 2 months out. She wants to get to 150 pounds. Dinner yesterday chicken thigh 20 grams of protein. She reports her memory is poor. Cottage cheese is 10 grams. No protein shake yesterday. Protein of 20 grams. Protein 50 to 60 grams of protein. She is trying to eat more meat. She is on diary. She reports no support. FU 1 month Objective - Vital Signs Vital signs: Vital Signs Temp 98.3 F 07/01/22 15:42 Pulse 83 07/01/22 15:42 Resp BP 154/81 07/01/22 15:42 Pulse Ox FiO2 Intake & Output 06/30/22 07/01/22 07/01/22 18:59 06:59 18:59 Weight 87.997 kg Assessment/Plan Plan: Date: 07/01/22 Initial Weight: 123.122 kg Initial BMI: 45.8 Current Weight: 87.997 kg Current BMI: 32.8 Type of Surgery: Total Volume in Band: Previous Volume: Volume Removed: Volume Added: Band Size:
== END | disposition home or self-care (01) ==
LOC: BARWHC3 14:39
PROVIDERS: ATTEND Surgery Plastic and Reconstructive Surgery
DX: Z48.815 Encounter for surgical aftercare following surgery on the digestive system (principal)
CPT/HCPCS: 99211

== ENCOUNTER → 2022-09-25 | Outpatient (CLI) | payer MEDICAID ==
[2022-09-25 18:37] LABS: ALT 28 U/L (8-44); AST 24 U/L (13-35); African American GFR (CKD) 90.9 (60.0-200.0); Albumin 4.4 g/dL (3.8-4.9); Albumin/Globulin Ratio 1.76 (1.60-3.17); Alkaline Phosphatase 109 U/L (41-126); Blood Urea Nitrogen 12.8 mg/dL (9.0-27.0); Calcium 9.7 mg/dL (8.7-10.3); Chloride 100 mmol/L (96-109); Chol/HDL Ratio 3.75 Ratio; Globulin 2.5 g/dL (1.6-3.3); Glucose 83 mg/dL (70-110); LDL Cholesterol,Calculated 125.7 mg/dL (0.0-131.0); Non-African American GFR(CKD) 78.5 (60.0-200.0); Potassium 4.3 mmol/L (3.5-5.5); Sodium 139 mmol/L (135-145); Total Protein 6.9 g/dL (6.2-8.2)
[2022-09-25 18:41] LABS: HCT 47.9 % (37.2-46.3); HGB 15.6 g/dL (12.0-15.0); MCH 29.1 pg (27.0-32.0); MCHC 32.6 g/dL (32.0-37.0); MCV 89.4 fL (80.0-97.0); Mean Platelet Volume 10.9 fL (9.5-12.2); NRBC Per 100 WBC 0 /100 WBCS (0.0-0.0); Platelet Count 278 X 10*3/uL (140-440); RBC 5.36 X 10*6/uL (4.10-5.20); RDW 13.1 % (11.5-14.5); WBC 6.98 X 10*3/uL (4.50-10.00)
== END | disposition home or self-care (01) ==
LOC: LABWHC1 11:02
PROVIDERS: ATTEND Family Medicine
DX: Z00.00 Encounter for general adult medical examination without abnormal findings (principal)
CPT/HCPCS: 36415; 80053; 80061; 85027

== ENCOUNTER → 2023-06-09 | Outpatient (CLI) | payer MEDICAID ==
[2023-06-09 10:49] LABS: HCT 46.7 % (37.2-46.3); HGB 15.4 d/dL (12.0-15.0); MCV 87.9 FL (80.0-97.0); Mean Platelet Volume 10.2 FL (9.5-12.2); NRBC Per 100 WBC 0 X 10*3/uL (0.00-0.01); Platelet Count 271 X 10*3/uL (140-440); RBC 5.31 X 10*6/uL (4.10-5.20); RDW 13.2 % (11.5-14.5); WBC 7.26 X 10*3/uL (4.50-10.00)
[2023-06-09 11:22] LABS: % Iron Saturation 18.41 (12.00-45.00); ALT 26 U/L (8-44); AST 25 U/L (13-35); Albumin 4.5 d/dL (3.8-4.9); Albumin/Globulin Ratio 1.67 Ratio (1.60-3.17); Alkaline Phosphatase 114 U/L (41-126); BUN/Creat Ratio 14.89 Ratio (12.00-20.00); Blood Urea Nitrogen 13.4 mg/dL (9.0-27.0); Calcium 9.6 mg/dL (8.7-10.3); Carbon Dioxide 27.9 mmol/L (21.6-31.8); Chloride 102 mmol/L (96-109); Chol/HDL Ratio 4.52 Ratio; Globulin 2.7 d/dL (1.6-3.3); Glucose 94 mg/dL (70-110); Iron 65 UG/DL (50-170); LDL Cholesterol,Calculated 143.4 mg/dL (0.0-131.0); Sodium 142 mmol/L (135-145); Total Bilirubin 0.6 mg/dL (0.3-1.2); Total Iron Binding Capacity 353 UG/DL (228-460); Total Protein 7.2 d/dL (6.2-8.2)
== END | disposition home or self-care (01) ==
LOC: LABWHC1 07:08
PROVIDERS: ATTEND Family Medicine
DX: Z98.84 Bariatric surgery status (principal)
CPT/HCPCS: 36415; 80053; 80061; 82306; 82607; 82728; 83036; 83540; 83550; 83970; 85027

== ENCOUNTER 2023-08-25 12:23 | Emergency (ER) | payer MEDICAID ==
[2023-08-25 13:05] LABS: Basophils % (A) 0 %; Eosinophils # (A) 0.2 k/uL (0-0.7); Eosinophils % (A) 2 %; HCT 43.4 % (34.0-46.0); HGB 14.7 gm/dL (11.4-16.0); Lymphocytes # (A) 1.9 k/uL (1.0-4.8); Lymphocytes % (A) 22 %; MCH 29.5 pg (25.0-35.0); MCV 86.9 fL (80.0-100.0); Mean Platelet Volume 8.6; Monocytes # (A) 0.5 k/uL (0-1.0); Monocytes % (A) 6 %; Neutrophils # (A) 5.9 k/uL (1.3-7.7); Neutrophils % (A) 67 %; Platelet Count 231 k/uL (150-450); RDW 13.2 % (11.5-15.5); WBC 8.7 k/uL (3.8-10.6)
--- NOTE | 2023-08-25 13:34 | XR ---
EXAMINATION TYPE: XR chest 2V DATE OF EXAM: 08/25/2023 COMPARISON: 12/04/2017 TECHNIQUE: PA and lateral views submitted. HISTORY: Chest pain FINDINGS: The lungs are clear and there is no pneumothorax, pleural effusion, or focal pneumonia. Heart size normal and no overt failure. Osseous structures demonstrate hypertrophic and degenerative changes of the spine. IMPRESSION: 1. No acute process.
[2023-08-25 13:37] VITALS: RESP 18
[2023-08-25 14:49] LABS: ALT 30 U/L (4-34); AST 32 U/L (14-36); African American GFR (CKD) >90 (>60 ml/min/1.73 sqM); Albumin 4.3 g/dL (3.5-5.0); Alkaline Phosphatase 95 U/L (38-126); Anion Gap 12 mmol/L; Blood Urea Nitrogen 22 mg/dL (7-17); Calcium 9.4 mg/dL (8.4-10.2); Carbon Dioxide 21 mmol/L (22-30); Chloride 107 mmol/L (98-107); Glucose 96 mg/dL (74-99); Non-African American GFR(CKD) >90 (>60 ml/min/1.73 sqM); Potassium 3.9 mmol/L (3.5-5.1); Sodium 140 mmol/L (137-145); Total Bilirubin 0.4 mg/dL (0.2-1.3); Total Protein 7.7 g/dL (6.3-8.2)
--- NOTE | 2023-08-25 15:01 | ED ---
General Adult HPI - General Chief complaint: Chest Pain Stated complaint: chest pain heartburn Time Seen by Provider: 08/25/23 14:51 Source: patient, RN notes reviewed, old records reviewed Mode of arrival: ambulatory - History of Present Illness Initial comments: 63-year-old female who had presented for evaluation of chest pain and heartburn sensation. Patient states that her pain did radiate to her jaw. She has no prior history of CAD. Pain began shortly after drinking a root beer flavored protein shake. She has had previous bariatric surgery. Her pain is nearly comp letely resolved with only minimal residual symptoms. - Related Data Home Medications Medication Instructions Recorded Confirmed Montelukast [Singulair] 10 mg PO HS 09/01/16 08/25/23 amLODIPine BESYLATE [Amlodipine 5 mg PO HS 09/01/16 08/25/23 Besylate] Azelastine HCl [Astelin Nasal 1 applic EA NOSTRIL BID PRN 08/08/20 08/25/23 [place]] Vilazodone HCl [Viibryd] 40 mg PO DAILY 09/30/20 08/25/23 Multivitamins, Thera [Multivitamin 1 tab PO DAILY 11/18/21 08/25/23 (formulary)] Biotin [Biotin Disolve] 5,000 mcg PO Q48H 08/25/23 08/25/23 Calcium Citrate 250 mg PO DAILY 08/25/23 08/25/23 Cholecalciferol [Vitamin D3 (25 25 mcg PO DAILY 08/25/23 08/25/23 Mcg = 1000 Iu)] Ferrous Sulfate [Feosol] 325 mg PO Q48H 08/25/23 08/25/23 L.acidoph,Paracasei, B.lactis 1 cap PO Q48H 08/25/23 08/25/23 [Probiotic] Elizabeth-3/Dha/Epa/Fish Oil [Fish Oil 1 cap PO Q48H 08/25/23 08/25/23 1,000 mg Softgel] Vit C/E/Zn/Coppr/Lutein/Zeaxan 1 cap PO Q48H 08/25/23 08/25/23 [Preservision Areds 2 Softgel] Zinc Gluconate [Zinc] 50 mg PO Q48H 08/25/23 08/25/23 Previous Rx's Medication Instructions Recorded Omeprazole [PriLOSEC] 40 mg PO DAILY #14 cap 10/02/20 Allergies Allergy/AdvReac Type Severity Reaction Status Date / Time Sulfa (Sulfonamide Allergy Rash/Hives Verified 08/25/23 16:38 Antibiotics) lisinopril AdvReac Cough Verified 08/25/23 16:38 Review of Systems ROS Statement: Those systems with pertinent positive or pertinent negative responses have been documented in the HPI. ROS Other: All systems not noted in ROS Statement are negative. 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 Thyroid nodule. Low iron & zinc. Minor varicose veins. Sl edema Rt ankle. History of Any Multi-Drug Resistant Organisms: None Reported Past Surgical History: Appendectomy, Bariatric Surgery, Hysterectomy Additional Past Surgical History / Comment(s): RIGHT LEG VEIN STRIPPING. OOPHERECTOMIES. SINUS SURGERY. Colonoscopies, EGD. Biopsy thyroid nodules. sleeve gastrectomy 04-14-21 Past Anesthesia/Blood Transfusion Reactions: Motion Sickness Past Psychological History: Anxiety Smoking Status: Former smoker Past Alcohol Use History: Rare Past Drug Use History: Marijuana - Past Family History Brother(s) Family Medical History: Cancer Additional Family Medical History / Comment(s): at age 1, poss lymphoma General Exam General appearance: alert, in no apparent distress Head exam: Present: atraumatic, normocephalic Eye exam: Present: normal appearance, PERRL Respiratory exam: Present: normal lung sounds bilaterally. Absent: respiratory distress, wheezes Cardiovascular Exam: Present: regular rate, normal rhythm GI/Abdominal exam: Present: soft. Absent: distended, tenderness Extremities exam: Present: normal inspection, normal capillary refill Neurological exam: Present: alert, oriented X3, CN II-XII intact. Absent: motor sensory deficit Course Vital Signs 08/25/23 08/25/23 13:10 15:19 Temperature 98.4 F 97.5 F L Pulse Rate 66 63 Respiratory 18 18 Rate Blood Pressure 157/94 181/90 O2 Sat by Pulse 96 97 Oximetry Medical Decision Making - Medical Decision Making Was pt. sent in by a medical professional or institution (, PA, ENVIRONMENTAL SERVICES SUPERVISOR, urgent care, hospital, or long-term...) When possible be specific @ -No Did you speak to anyone other than the patient for history (EMS, parent, family, police, friend...)? What history was obtained from this source @ -No Did you review nursing and triage notes (agree or disagree)? Why? @ -I reviewed and agree with nursing and triage notes Were old charts reviewed (outside hosp., previous admission, EMS record, old EKG, old radiological studies, urgent care reports/EKG's, long-term records)? Report findings @ -No old charts were reviewed Differential Diagnosis (chest pain, altered mental status, abdominal pain women, abdominal pain men, vaginal bleeding, weakness, fever, dyspnea, syncope, headache, dizziness, GI bleed, back pain, seizure, CVA, palpatations, mental health, musculoskeletal)? @ -[Differential Chest Pain: Stable Angina, Unstable Angina, STEMI, NSTEMI Aortic Dissection, Pneumothorax, Musculoskeletal, Esophageal Spasm GERD, Cholecystitis, Pancreatitis, Zoster, this is not meant to be an all-inclusive list. EKG interpreted by me (3pts min.). @ -EKG: Sinus rhythm at 71, WV interval 148, QRS duration 86, QTC 408, no ST segment elevation, T-wave inversion in the precordial leads and inferior leads similar compared to prior. X-rays interpreted by me (1pt min.). @ -Chest x-ray negative for acute cardiopulmonary findings CT interpreted by me (1pt min.). @ -None done U/S interpreted by me (1pt. min.). @ -None done What testing was considered but not performed or refused? (CT, X-rays, U/S, labs)? Why? @ -None What meds were considered but not given or refused? Why? @ -None Did you discuss the management of the patient with other professionals (professionals i.e. , PA, ENVIRONMENTAL SERVICES SUPERVISOR, lab, RT, psych nurse, social security assessor, speech pathology assistant, teacher, medical laboratory technical officer, immigration case worker)? Give summary @ -No Was smoking cessation discussed for >3mins.? @ -No Was critical care preformed (if so, how long)? @ -No Were there social determinants of health that impacted care today? How? (Homelessness, low income, unemployed, alcoholism, drug addiction, transportation, low edu. Level, literacy, decrease access to med. care, half-way, rehab)? @ -No Was there de-escalation of care discussed even if they declined (Discuss DNR or withdrawal of care, Hospice)? DNR status @ -No What co-morbidities impacted this encounter? (DM, HTN, Smoking, COPD, CAD, Cancer, CVA, ARF, Chemo, Hep., AIDS, mental health diagnosis, sleep apnea, morbid obesity)? @ -Bariatric surgery, indigestion and reflux Was patient admitted / discharged? Hospital course, mention meds given and route, prescriptions, significant lab abnormalities, going to OR and other pertinent info. @ 63-year-old female with an episode of chest pain which was resolved prior to arrival. The pain was associated with drinking a protein shake. EKG is abnormal but stable from prior. Chest x-ray is clear. She has a normal CBC, normal CMP. Negative lipase, negative initial troponin. We did discuss the possibility of admission for serial cardiac enzymes versus a 3 hour troponin and strict return parameters. The patient prefers to be discharged home but is agreeable with repeat troponin testing. This is obtained in the emergency department and is negative. Patient stable for discharge and eager for di scharge. Return parameters were discussed. Undiagnosed new problem with uncertain prognosis? @ -No Drug Therapy requiring intensive monitoring for toxicity (Heparin, Nitro, Insulin, Cardizem)? @ -No Were any procedures done? @ -No Diagnosis/symptom? @ -[Chest pain, resolved Acute, or Chronic, or Acute on Chronic? @ -[Acute Uncomplicated (without systemic symptoms) or Complicated (systemic symptoms)? @ -default Side effects of treatment? @ -No Exacerbation, Progression, or Severe Exacerbation? @ -No Poses a threat to life or bodily function? How? (Chest pain, USA, MS, pneumonia, PE, COPD, DKA, ARF, appy, cholecystitis, CVA, Diverticulitis, Homicidal, Suicidal, threat to staff... and all critical care pts) @ -Low risk at this time - Lab Data Result diagrams: 08/25/23 12:42 08/25/23 12:42 Lab Results 08/25/23 08/25/23 08/25/23 Range/Units 12:42 12:42 15:04 WBC 8.7 (3.8-10.6) k/uL RBC 5.00 (3.80-5.40) m/uL Hgb 14.7 (11.4-16.0) gm/dL Hct 43.4 (34.0-46.0) % MCV 86.9 (80.0-100.0) fL MCH 29.5 (25.0-35.0) pg MCHC 34.0 (31.0-37.0) g/dL RDW 13.2 (11.5-15.5) % Plt Count 231 (150-450) k/uL MPV 8.6 Neutrophils % 67 % Lymphocytes % 22 % Monocytes % 6 % Eosinophils % 2 % Basophils % 0 % Neutrophils # 5.9 (1.3-7.7) k/uL Lymphocytes # 1.9 (1.0-4.8) k/uL Monocytes # 0.5 (0-1.0) k/uL Eosinophils # 0.2 (0-0.7) k/uL Basophils # 0.0 (0-0.2) k/uL Sodium 140 (137-145) mmol/L Potassium 3.9 (3.5-5.1) mmol/L Chloride 107 (98-107) mmol/L Carbon Dioxide 21 L (22-30) mmol/L Anion Gap 12 mmol/L BUN 22 H (7-17) mg/dL Creatinine 0.69 (0.52-1.04) mg/dL Est GFR (CKD-EPI)AfAm >90 (>60 ml/min/1.73 sqM) Est GFR (CKD-EPI)NonAf >90 (>60 ml/min/1.73 sqM) Glucose 96 (74-99) mg/dL Calcium 9.4 (8.4-10.2) mg/dL Total Bilirubin 0.4 (0.2-1.3) mg/dL AST 32 (14-36) U/L ALT 30 (4-34) U/L Alkaline Phosphatase 95 (38-126) U/L Troponin I (0.000-0.034) ng/mL Total Protein 7.7 (6.3-8.2) g/dL Albumin 4.3 (3.5-5.0) g/dL Lipase 101 (23-300) U/L 08/25/23 Range/Units 15:14 WBC (3.8-10.6) k/uL RBC (3.80-5.40) m/uL Hgb (11.4-16.0) gm/dL Hct (34.0-46.0) % MCV (80.0-100.0) fL MCH (25.0-35.0) pg MCHC (31.0-37.0) g/dL RDW (11.5-15.5) % Plt Count (150-450) k/uL MPV Neutrophils % % Lymphocytes % % Monocytes % % Eosinophils % % Basophils % % Neutrophils # (1.3-7.7) k/uL Lymphocytes # (1.0-4.8) k/uL Monocytes # (0-1.0) k/uL Eosinophils # (0-0.7) k/uL Basophils # (0-0.2) k/uL Sodium (137-145) mmol/L Potassium (3.5-5.1) mmol/L Chloride (98-107) mmol/L Carbon Dioxide (22-30) mmol/L Anion Gap mmol/L BUN (7-17) mg/dL Creatinine (0.52-1.04) mg/dL Est GFR (CKD-EPI)AfAm (>60 ml/min/1.73 sqM) Est GFR (CKD-EPI)NonAf (>60 ml/min/1.73 sqM) Glucose (74-99) mg/dL Calcium (8.4-10.2) mg/dL Total Bilirubin (0.2-1.3) mg/dL AST (14-36) U/L ALT (4-34) U/L Alkaline Phosphatase (38-126) U/L Troponin I <0.012 (0.000-0.034) ng/mL Total Protein (6.3-8.2) g/dL Albumin (3.5-5.0) g/dL Lipase (23-300) U/L Disposition Clinical Impression: Chest pain Disposition: HOME SELF-CARE Condition: Good Instructions (If sedation given, give patient instructions): Chest Pain (ED) Is patient prescribed a controlled substance at d/c from ED?: No Referrals: Tirso You MD [Primary Care Provider] - 1-2 days Time of Disposition: 19:40
[2023-08-25 16:04] VITALS: PULSE 63; TEMP 97.5
[2023-08-25 19:59] VITALS: BP 154/97
== END 2023-08-25 19:46 | disposition home or self-care (01) ==
LOC: EC 12:23
DX: R07.9 Chest pain, unspecified (principal); E11.9 Type 2 diabetes mellitus without complications; I10 Essential (primary) hypertension; M19.90 Unspecified osteoarthritis, unspecified site; F41.9 Anxiety disorder, unspecified; F12.90 Cannabis use, unspecified, uncomplicated; Z87.891 Personal history of nicotine dependence; Z79.899 Other long term (current) drug therapy; Z88.2 Allergy status to sulfonamides; Z88.8 Allergy status to other drugs, medicaments and biological substances
CPT/HCPCS: 36415; 71046; 80053; 83690; 84484; 85025; 93005; 99285

== ENCOUNTER → 2024-01-20 | Outpatient (CLI) | payer MEDICARE ==
--- NOTE | 2024-01-20 13:23 | MM ---
Reason for Exam: Screening (asymptomatic). Last mammogram was performed 1 year(s) and 1 month(s) ago. Patient History: Menarche at age 12. Patient has no children. Left ovary removed at age 41. Right ovary removed at age 41. Hysterectomy at age 31. Postmenopausal. Currently using Estrogen, beginning at age 39 for 10 years, 5 months. Paternal cousin had breast cancer, age 40. Paternal aunt had breast cancer, age 50. Risk Values: Vy 5 year model risk: 1.8%. NCI Lifetime model risk: 7.2%. Prior Study Comparison: 10/21/2020 Bilateral Screening Mammogram, [facility]. 12/05/2021 Bilateral Screening Mammogram, [facility]. 12/21/2022 Bilateral MG 3D screening mammo w/cad, [facility]. Tissue Density: The breasts are heterogeneously dense, which may obscure small masses. Findings: Analyzed By CAD. There is no suspicious group of microcalcifications or new suspicious mass in either breast. Overall Assessment: Benign, BI-RAD 2 Management: Screening Mammogram of both breasts in 1 year. . Patient should continue monthly self-breast exams. A clinical breast exam by your physician is recommended on an annual basis. This exam should not preclude additional follow-up of suspicious palpable abnormalities. Note on Vy scores and lifetime risk: 1. A Vy score greater than 3% is considered moderate risk. If this is the case, consider specialist referral to assess eligibility for a risk reducing agent. 2. If overall lifetime risk for the development of breast cancer is 20% or higher, the patient may qualify for future screening with alternating mammogram and breast MRI. Electronically signed and approved by: Christiano Rocha M.D. Radiologis
== END | disposition home or self-care (01) ==
LOC: RADMAMWWP 07:45
PROVIDERS: ATTEND Family Medicine
DX: Z12.31 Encounter for screening mammogram for malignant neoplasm of breast (principal); Z78.0 Asymptomatic menopausal state; Z80.3 Family history of malignant neoplasm of breast
CPT/HCPCS: 77063; 77067

== ENCOUNTER → 2024-04-13 | Outpatient (CLI) | payer MEDICARE ==
--- NOTE | 2024-04-15 19:07 | BD ---
EXAMINATION TYPE: Axial Bone Density DATE OF EXAM: 04/13/2024 CLINICAL HISTORY: 64 years old Female. ICD-10 CODE: M89.9 DISORDER OF BONE Height: 64in Weight: 208lb FRAX RISK QUESTIONS: Secondary Osteoporosis: 3. Menopause before 45: yes RISK FACTORS HISTORY OF: MEDICATIONS: EXAM MEASUREMENTS: Bone mineral densitometry was performed using the [employer]. Bone mineral density as measured about the Lumbar spine is: ----- L1-L4(G/cm2): 1.385 T Score Values are as follows: ----- L1: 1.5 ----- L2: 1.8 ----- L3: 1.2 ----- L4: 2.0 ----- L1-L4: 1.7 Z Score Values are as follows: ----- L1: 2.1 ----- L2: 2.4 ----- L3: 1.8 ----- L4: 2.6 ----- L1-L4: 2.3 Bone mineral density has: Increased 8.7% since study of: 07-01-12 Bone mineral density about the R hip (g/cm2): 1.200 Bone mineral density about the L hip (g/cm2): 1.212 T Score values are as follows: -----R Neck: 1.1 -----L Neck: 1.2 -----R Total: 1.5 -----L Total: 1.6 Z Score values are as follows: -----R Neck: 1.9 -----L Neck: 2.0 -----R Total: 2.0 -----L Total: 2.1 Bone mineral density has: Decreased -8.7% since study of: 07-01-12 FRAX%s: The graph provided illustrates a 5.2% chance for a major osteoporotic fx and a 0.1% chance fo r the hips probability for fx in 10 years time. IMPRESSION: Normal (Values between +1 and -1 indicate normal bone mass). Consider repeating this study in 5 year s or sooner if there is some new clinical indication. NOTE: T-SCORE=SD OF THE YOUNG ADULT MEAN.
== END | disposition home or self-care (01) ==
LOC: RADBDWWP 13:20
PROVIDERS: ATTEND Family Medicine
DX: M89.9 Disorder of bone, unspecified (principal); Z78.0 Asymptomatic menopausal state
CPT/HCPCS: 77080